=== PATIENT | female | born 1980 | race African-American/Black ===

== ENCOUNTER 2021-02-03 09:57 | Emergency (ER) | payer BC ==
--- OUTSIDE RECORDS SUMMARY | 2021-02-03 10:01 | XMS REPORT | Continuity of Care Document ---
:1980 Author Organization [facility] t Address [address] [place] [address] Care Team Providers Name Role Phone MAXWELL BRISENO Attending Clinician Unavailable LEESA EDWARDS Attending Clinician Unavailable Problems Condition Condition Condition Status Onset Resolution Last Treating Co mments Source Name Details Category Date Date Treatment Clinician Date Tear of Tear of Problem Active [facility] left [facility] cuff, cuff, l unspecifie unspecifie Ou tpati d tear d tear ent extent extent Clinics Allergies, Adverse Reactions, Alerts Allergy Allergy Status Severity Reaction(s) Onset Inactive Treating Comm ents Source Name Type Date Date Clinician Aspirin Adverse Active Info Not [facility] Reaction Available [facility] Clinics Medications Ordered Filled Start Stop Current Ordering Indication Dosage Frequency Signature Comments Components Source Medication Medication Date Date Medication? Clinician (SIG) Name Name ibuprofen ibuprofen Yes Jay [address] [facility]ics Aleve Aleve Yes Jay [address] [facility] with food [facility] - or milk as Memoria needed [facility] ent [facility] tylenol tylenol Yes Jay [facility] Procedures This patient has no known procedures. Encounters Start End Encounter Admission Attending Care Care Encounter Source Date/Time Date/Time Type Type Clinicians Facility Department ID 2017-12-12 2017-12-12 [facility] [id number] [facility] [address] 11:57:00 11:57:00 t [facility] 2017-12-07 2017-12-07 [facility] [id number] [address] 09:34:00 09:34:00 t [facility] 2017-12-05 2017-12-05 [facility] [id number] [facility] [address] 08:30:00 08:30:00 t [facility] Results Test Description Test Time Test Comments Results Result Comments Source URINE CULTURE 2017-05-11 13:30:00 Test Item Value Reference Range Interpretation Comme nts CULTURE (BEAKER) (test code = 1095) 40-49,000 col/mL skin ramon HEMOGLOBIN [id number] 16:13:00 Test Item Value Reference Range Interpretation Comments HEMOGLOBIN A1C (BEAKER) (test code = 4.4 % 4.3-6.1 368) URINALYSIS W/ [id number] 12:14:00 Test Item Value Reference Range Interpretation Comments COLOR (BEAKER) (test code = 470) Light Yellow CLARITY (BEAKER) (test code = Clear 469) SPECIFIC GRAVITY UA (BEAKER) 1.009 1.001-1.035 (test code = 468) PH UA (BEAKER) (test code = 467) 7.0 5.0-8.0 PROTEIN UA (BEAKER) (test code = Negative Negative 464) GLUCOSE UA (BEAKER) (test code = Negative Negative 365) KETONES UA (BEAKER) (test code = Negative Negative 371) BILIRUBIN UA (BEAKER) (test code Negative Negative = 462) BLOOD UA (BEAKER) (test code = Negative Negative 461) NITRITE UA (BEAKER) (test code = Negative Negative 465) LEUKOCYTE ESTERASE UA (BEAKER) Negative Negative (test code = 466) UROBILINOGEN UA (BEAKER) (test 0.2 mg/dL 0.2-1.0 code = 463) RBC UA (BEAKER) (test code = < /HPF 519) WBC UA (BEAKER) (test code = 1 /HPF 520) SQUAMOUS EPITHELIAL (BEAKER) < /HPF (test code = 516) SOURCE(BEAKER) (test code = 2795) PROTEIN, RANDOM [id number] 12:10:00 Test Item Value Reference Range Interpretation Comments PROTEIN, URINE (BEAKER) (test code = < mg/dL 0-14 1569) MICROALBUMIN, RANDOM [id number] 12:04:00 Test Item Value Reference Range Interpretation Comments MICROALBUMIN URINE (BEAKER) (test < mg/dL code = 1794) Reference Range: No NormalsHCG, QUANTITATIVE, [id number] 12:03:00 Test Item Value Reference Range Interpretation Comments GONADOTROPIN, CHORIONIC (HCG) QUANT < mIU/mL 0-10 (BEAKER) (test code = 649) Non- Females: <10 mIU/mL Females: Gestation Age Reference Range(mIU/mL) 0.2-1 Week 5-50 1-2 Weeks 50-500 2-3 Weeks 100-5,000 3-4Weeks 500-10,000 4-5 Weeks 1,000-50,000 5-6 Weeks 10,000-100,000 6-8 Weeks 15,000-200,000 2-3 Months 10,000-100,000CREATININE, RANDOM URINE 2017-05-10 11:38:00 Test Item Value Reference Range Interpretation Comments CREATININE URINE (BEAKER) (test 70.1 mg/dL code = 375) Reference Range: No NormalsHEPATIC FUNCTION [id number] 11:37:00 Test Item Value Reference Range Interpretation Comments TOTAL PROTEIN (BEAKER) (test code = 7.6 gm/dL 6.0-8.3 770) ALBUMIN (BEAKER) (test code = 1145) 4.0 g/dL 3.5-5.0 BILIRUBIN TOTAL (BEAKER) (test code 0.3 mg/dL 0.2-1.2 = 377) BILIRUBIN DIRECT (BEAKER) (test 0.1 mg/dL 0.1-0.5 code = 706) ALKALINE PHOSPHATASE (BEAKER) (test 63 U/L 40-150 code = 346) AST (SGOT) (BEAKER) (test code = 19 U/L 5-34 353) ALT (SGPT) (BEAKER) (test code = 14 U/L 6-55 347) BASIC METABOLIC [id number] 11:37:00 Test Item Value Reference Range Interpretation Comments SODIUM (BEAKER) 137 meq/L 136-145 (test code = 381) POTASSIUM (BEAKER) 4.2 meq/L 3.5-5.1 (test code = 379) CHLORIDE (BEAKER) 106 meq/L 98-107 (test code = 382) CO2 (BEAKER) (test 25 meq/L 22-29 code = 355) BLOOD UREA NITROGEN 13 mg/dL 7-21 (BEAKER) (test code = 354) CREATININE (BEAKER) 0.78 mg/dL 0.57-1.25 (test code = 358) GLUCOSE RANDOM 65 mg/dL 70-105 L (BEAKER) (test code = 652) CALCIUM (BEAKER) 9.5 mg/dL 8.4-10.2 (test code = 697) EGFR (BEAKER) (test 84 mL/min/1.73 ESTIMA DAVE GFR IS code = 1092) sq m NOT ACCURATE CREATININE CLEARANCE IN PREDICTING GLOMERULAR FILTRATION RATE . ESTIMATED GFR I S NOT APPLICABLE FOR DIALYSIS PATIEN TS. CBC W/PLT COUNT & AUTO [id number] 10:43:00 Test Item Value Reference Range Interpretation Comments WHITE BLOOD CELL COUNT (BEAKER) 6.7 K/ L 3.5-10.5 (test code = 775) RED BLOOD CELL COUNT (BEAKER) 4.57 M/ L 3.93-5.22 (test code = 761) HEMOGLOBIN (BEAKER) (test code = 11.0 GM/DL 11.2-15.7 L 410) HEMATOCRIT (BEAKER) (test code = 36.9 % 34.1-44.9 411) MEAN CORPUSCULAR VOLUME (BEAKER) 80.7 fL 79.4-94.8 (test code = 753) MEAN CORPUSCULAR HEMOGLOBIN 24.1 pg 25.6-32.2 L (BEAKER) (test code = 751) MEAN CORPUSCULAR HEMOGLOBIN CONC 29.8 GM/DL 32.2-35.5 L (BEAKER) (test code = 752) RED CELL DISTRIBUTION WIDTH 25.6 % 11.7-14.4 H (BEAKER) (test code = 412) PLATELET COUNT (BEAKER) (test 279 K/CU MM 150-450 code = 756) MEAN PLATELET VOLUME (BEAKER) 9.7 fL 9.4-12.3 (test code = 754) NUCLEATED RED BLOOD CELLS 0 /100 WBC 0-0 (BEAKER) (test code = 413) NEUTROPHILS RELATIVE PERCENT 71 % (BEAKER) (test code = 429) LYMPHOCYTES RELATIVE PERCENT 19 % (BEAKER) (test code = 430) MONOCYTES RELATIVE PERCENT 9 % (BEAKER) (test code = 431) EOSINOPHILS RELATIVE PERCENT 1 % (BEAKER) (test code = 432) BASOPHILS RELATIVE PERCENT 1 % (BEAKER) (test code = 437) NEUTROPHILS ABSOLUTE COUNT 4.78 K/ L 1.56-6.13 (BEAKER) (test code = 670) LYMPHOCYTES ABSOLUTE COUNT 1.27 K/ L 1.18-3.74 (BEAKER) (test code = 414) MONOCYTES ABSOLUTE COUNT (BEAKER) 0.57 K/ L 0.24-0.36 H (test code = 415) EOSINOPHILS ABSOLUTE COUNT 0.04 K/ L 0.04-0.36 (BEAKER) (test code = 416) BASOPHILS ABSOLUTE COUNT (BEAKER) 0.04 K/ L 0.01-0.08 (test code = 417) IMMATURE GRANULOCYTES-RELATIVE 1 % 0-1 PERCENT (BEAKER) (test code = 2801) RAPID STREP A [id number] 23:12:00 Test Item Value Reference Range Interpretation Comments STREP A ANTIGEN (BEAKER) (test code Negative Negative = 556)
[2021-02-03 13:28] LABS: Absolute Lymphocytes (CBC) 1.4 K/uL (0.7-4.9); Basophils % 0.4 % (0-1.3); Hematocrit 20.9 % (36.0-45.0); Lymphocytes % 26.5 % (15.3-44.8); MPV 7.9 fL (7.6-11.3); RBC Red Blood Cell Count 3.71 M/uL (3.86-4.86)
[2021-02-03 13:46] LABS: Potassium 3.7 mmol/L (3.5-5.1)
[2021-02-03 14:00] LABS: Protime INR 1.06
[2021-02-03 14:29] LABS: Urine Blood 3+ (Negative); Urine Glucose Negative (Negative); Urine Protein Negative (Negative); Urine Specific Gravity 1.015 (1.005-1.030)
[2021-02-03] MEDS ORDERED: NA CHLORIDE 0.9% 250 ML ONE ×2 (14:35→19:49)
[2021-02-03] MEDS ORDERED: MEDROXYPROGEST ACET 150 MG/ML IM ONE (15:00)
[2021-02-03 16:59] LABS: Urine Specific Gravity/Preg 1.015 (1.005-1.030)
[2021-02-03 17:38] LABS: Anisocytosis 2+; Blood Morphology Comment NOTED (NOT SEEN); Hypochromasia 3+; Platelet Estimate INCR; Poikilocytosis 2+; Polychromasia 1+
[2021-02-03 17:39] LABS: Ovalocytes 1+; Teardrop Cell 1+
--- NOTE | 2021-02-03 21:39 | EDPHYS ---
Physician Documentation [facility] Name: Augusta Rider Age: 40 yrs Sex: Female : 1980 Arrival Date: 02/03/2021 Time: 10:02 Bed 6 Private MD: ED Physician Ravinder Burns HPI: 02/03 13:10 This 40 yrs old Black Female presents to ER via Ambulatory with complaints of Sent Per cp DrWayne 13:10 The patient presents with vaginal bleeding that is reports using 6 pads or tampons per cp day. Onset: The symptoms/episode began/occurred 5 day(s) ago. 13:10 Associated signs and symptoms: Pertinent positives: fatigue, Pertinent negatives: cp constipation, diarrhea, dysuria, abdominal pain. The patient's method of control includes nothing. Patient presents to the emergency department with complaints of fatigue and concern for anemia. Patient reports she was seen by her family physician Dr. Antonio yesterday after having an episode of heavy nasal bleeding, she had some blood work done that returned today showing anemia and referred to the emergency department for evaluation. Patient reports history of heavy menstrual bleeding and is currently having menstrual bleeding and reports at times she has to change a pad every 4 hours. She states the bleeding seems to be resolving at this point as it is getting close to the end of her regular menstrual cycle. Patient states she has seen Dr Jansen in the past who recommended uterine ablation for the heavy menstrual cycles but she has not followed up. 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 - Social history:: Smoking status: Patient denies any tobacco usage or history of. ROS: 13:15 Constitutional: Positive for fatigue, Negative for body aches, chills, fever, poor PO cp intake. 13:15 Eyes: Negative for injury, pain, redness, and discharge. cp 13:15 Cardiovascular: Negative for chest pain, edema, palpitations. 13:15 Respiratory: Negative for cough, shortness of breath, wheezing. 13:15 Abdomen/GI: Negative for abdominal pain, nausea, vomiting, and diarrhea. 13:15 Back: Negative for pain at rest, pain with movement. 13:15 : Positive for vaginal bleeding. 13:15 Neuro: Negative for altered mental status, dizziness, headache, weakness. 13:15 All other systems are negative. Exam: 13:20 Constitutional: The patient appears in no acute distress, alert, awake, comfortable, cp non-diaphoretic, non-toxic, well developed, well nourished. 13:20 Head/Face: Normocephalic, atraumatic. cp 13:20 Eyes: Periorbital structures: appear normal, Conjunctiva: normal, no exudate, no injection, Sclera: no appreciated abnormality, Lids and lashes: appear normal, bilaterally. 13:20 ENT: External ear(s): are unremarkable, Nose: is normal, Mouth: Lips: moist, Oral mucosa: moist, Posterior pharynx: Airway: no evidence of obstruction, patent. 13:20 Chest/axilla: Inspection: normal. 13:20 Cardiovascular: Rate: normal, Rhythm: regular, Edema: is not appreciated, JVD: is not appreciated. 13:20 Respiratory: the patient does not display signs of respiratory distress, Respirations: normal, no use of accessory muscles, no retractions, labored breathing, is not present, Breath sounds: are clear throughout, no decreased breath sounds, no stridor, no wheezing. 13:20 Abdomen/GI: Inspection: abdomen appears normal, Bowel sounds: active, all quadrants, Palpation: abdomen is soft and non-tender, in all quadrants, involuntary guarding, is not appreciated. 13:20 Back: pain, is absent, ROM is normal. 13:20 Neuro: Orientation: to person, place \T\ time. Mentation: is normal, Motor: moves all fours, strength is normal, Sensation: is normal. Vital Signs: 10:17 BP 120 / 82; Pulse 97; Resp 16; Temp 97.9(TE); Pulse Ox 100% on R/A; Weight 78.02 kg; ss Height 5 ft. 3 in. (160.02 cm); Pain 0/10; 14:28 BP 119 / 72; Pulse 79; Resp 17; Pulse Ox 100% ; ap3 15:36 BP 104 / 60; Pulse 71; Resp 17; Pulse Ox 100% on R/A; ap3 16:21 BP 112 / 66; Pulse 78; Resp 16; Pulse Ox 100% on R/A; ap3 17:17 BP 111 / 76; Pulse 72; Resp 16; Pulse Ox 98% on R/A; ap3 18:13 BP 127 / 93; Pulse 75; Resp 16 S; Pulse Ox 100% on R/A; jd3 19:31 BP 133 / 78; Pulse 90; Resp 18; Pulse Ox 100% ; tw5 20:03 BP 120 / 71; Pulse 90; Resp 16; Temp 98.8; Pulse Ox 100% ; Pain 0/10; tw5 21:22 tw5 10:17 Body Mass Index 30.47 (78.02 kg, 160.02 cm) ss 21:22 see blood tranfusion spread sheet for vitals tw5 MDM: 02/02 14:00 Differential diagnosis: dysmenorrhea, ectopic , pelvic inflammatory disease, cp hemorrhage, ruptured ectopic , urinary tract infection, vaginosis, uterine fibroid. 02/03 13:02 Patient medically screened. [facility] 14:15 Data reviewed: vital signs, nurses notes, lab test result(s). 14:15 Refusal of service: The patient/guardian displays adequate decision making capability cp and despite a detailed discussion of alternatives, benefits, risks, and consequences refuses: pelvic exam to assess vaginal bleeding and pelvic US. Patient reports having US performed earlier this year that was negative for uterine fibroids. 18:00 Transition of care: After a detail discussion of the patient's case, care is cp transferred to Driss STARKS. 21:38 Data interpreted: Pulse oximetry: on room air is 100 %. Interpretation: normal. jr8 Counseling: I had a detailed discussion with the patient and/or guardian regarding: the historical points, exam findings, and any diagnostic results supporting the discharge/admit diagnosis, lab results, the need for outpatient follow up, an OB/Gyne specialist, to return to the emergency department if symptoms worsen or persist or if there are any questions or concerns that arise at home. Response to treatment: the patient's symptoms have markedly improved after treatment. 02/03 13:06 Order name: CBC with Diff; Complete Time: 17:40 ss 02/03 13:58 Interpretation: Normal except: RBC 3.71; HGB 6.1; HCT 20.9; MCV 56.3; MCH 16.5; MCHC cp 29.2; PLT 467; RDW 23.3. 02/03 13:06 Order name: BMP; Complete Time: 13:58 ss 02/03 13:06 Order name: Type And Screen ss 02/03 13:07 Order name: PT-INR; Complete Time: 15:44 cp 02/03 13:07 Order name: Ptt, Activated; Complete Time: 15:44 cp 02/03 14:29 Order name: Urine Dipstick-Ancillary; Complete Time: 15:44 EDMS 02/03 15:44 Interpretation: Normal except: UBLD 3+. cp 02/03 13:07 Order name: IV; Complete Time: 13:20 cp 02/03 14:32 Order name: Packed RBC Leukored EDMD 02/03 15:58 Order name: Urine --Ancillary (enter results) bd 02/03 15:59 Order name: Urine --Ancillary; Complete Time: 17:40 EDMS 02/03 16:53 Order name: Bb Add On cp 02/03 17:00 Order name: Packed RBCs (Additional Unit) EDMD 02/03 17:38 Order name: Manual Differential; Complete Time: 17:40 EDMS 02/03 13:20 Order name: Urine Dipstick-Ancillary (obtain specimen); Complete Time: 14:24 cp 02/03 13:20 Order name: Urine Test (obtain specimen); Complete Time: 14:24 cp 02/03 14:11 Order name: Transfuse; Complete Time: 18:08 cp Administered Medications: 15:49 Drug: DepoProvera - medroxyPROGESTERone 150 mg Route: IM; Site: left gluteus; ap3 16:20 Follow up: Response: No adverse reaction ap3 Disposition: 02/04 09:20 Co-signature as Attending Physician, Ravinder Burns MD I agree with the assessment and mohamud plan of care. Disposition Summary: 02/03/21 21:39 Discharge Ordered Location: Home jr8 Problem: new jr8 Symptoms: have improved jr8 Condition: Stable jr8 Diagnosis - Abnormal uterine and vaginal bleeding, unspecified jr8 - Anemia, unspecified jr8 Followup: jr8 - With: Christina Jansen MD - When: 2 - 3 days - Reason: Recheck today's complaints, Continuance of care, Re-evaluation by your physician Discharge Instructions: - Discharge Summary Sheet jr8 - Abnormal Uterine Bleeding jr8 - Anemia jr8 - Blood Transfusion, Adult jr8 Forms: - Medication Reconciliation Form jr8 - Thank You Letter jr8 - Antibiotic Education jr8 - Prescription Opioid Use jr8 Prescriptions: - Ferrous Sulfate 325 mg (65 mg Iron) Oral Tablet - take 1 tablet by ORAL route every 8 hours; 90 tablet; Refills: 0, Product jr8 Selection Permitted - Medrol ([place]) 4 mg Oral Tablets, Dose Pack - take 1 tablet by ORAL route as directed - follow package instructions; 1 jr8 packet; Refills: 0, Product Selection Permitted Signatures: Dispatcher [employer] EDRavinder Metz MD MD cha Smirch, Shelby, RN RN Driss Tolbert PA PA jr8 Ravinder Alexandra PA PA cp Prokisch, Amanda RN RN ap3
--- NOTE | 2021-02-03 21:39 | ER ---
Nurse's Notes [facility] Name: Augusta Rider Age: 40 yrs Sex: Female : 1980 Arrival Date: 02/03/2021 Time: 10:02 Bed 6 Private MD: Diagnosis: Abnormal uterine and vaginal bleeding, unspecified;Anemia, unspecified Presentation: 02/03 10:17 Chief complaint: Patient states: "Dr. Almanzar called me and told me to come straight to the ER to get a blood transfusion. He said my blood count was 6 something." Pt reports that she was seen by doctor yesterday after having a nose bleed yesterday. Pt states she has been feeling okay, other than just a little tired. HX of anemia. Coronavirus screen: Client denies travel out of the [place] in the last 14 days. Ebola Screen: Patient denies exposure to infectious person. Patient denies travel to an Ebola-affected area in the 21 days before illness onset. Initial Sepsis Screen: Does the patient meet any 2 criteria? No. Patient's initial sepsis screen is negative. Does the patient have a suspected source of infection? No. Patient's initial sepsis screen is negative. Risk Assessment: Do you want to hurt yourself or someone else? Patient reports no desire to harm self or others. Onset of symptoms was February 03, 2021. 10:17 Method Of Arrival: Ambulatory ss 10:17 Acuity: POOJA 3 ss Triage Assessment: 13:21 General: Appears in no apparent distress. comfortable, well groomed, Behavior is calm, jh5 cooperative, appropriate for age. Pain: Denies pain. 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 - Social history:: Smoking status: Patient denies any tobacco usage or history of. Screenin:21 Abuse screen: Denies threats or abuse. Denies injuries from another. Nutritional jh5 screening: No deficits noted. Tuberculosis screening: No symptoms or risk factors identified. Fall Risk None identified. Assessment: 13:53 General: Appears in no apparent distress. comfortable, Behavior is calm, cooperative. ss Pain: Denies pain. Neuro: Level of Consciousness is awake, alert, obeys commands, Oriented to person, place, time, situation. Cardiovascular: Capillary refill < 3 seconds is brisk in bilateral fingers. Respiratory: Airway is patent Respiratory effort is even, unlabored, Respiratory pattern is regular, symmetrical. GI: No signs and/or symptoms were reported involving the gastrointestinal system. Derm: Skin is intact, is healthy with good turgor, Skin is dry, Skin is pink, warm \\T\\ dry. normal. 13:53 Reassessment: Dr. Burns notified of critical lab value HGB 6.1. ss 15:36 Reassessment: Patient and/or family updated on plan of care and expected duration. Pain ap3 level reassessed. Patient is alert, oriented x 3, equal unlabored respirations, skin warm/dry/pink. 15:49 Reassessment: Patient ambulated to restroom unassisted. No injuries reported. ap3 18:05 Reassessment: Patient and/or family updated on plan of care and expected duration. Pain jd3 level reassessed. Patient is alert, oriented x 3, equal unlabored respirations, skin warm/dry/pink. blood transfusion started. 19:31 General: Appears in no apparent distress. comfortable, Behavior is calm, cooperative, tw5 appropriate for age. General: Reports "I bleed a lot, like a lot of a lot when I am on my period" Patient reports that this is her first time getting a blood transfusion, but was told before in the past that she needed one. It was discussed that she needs an ablation. Neuro: Level of Consciousness is awake, alert, obeys commands, Oriented to person, place, time, situation. 20:03 Reassessment: Patient appears in no apparent distress at this time. No changes from tw5 previously documented assessment. second bag of blood began infusing. see attached flow sheet on patients chart. 21:22 Reassessment: Patient appears in no apparent distress at this time. No changes from tw5 previously documented assessment. Patient and/or family updated on plan of care and expected duration. Pain level reassessed. General: Appears in no apparent distress. comfortable, Behavior is calm, cooperative, appropriate for age. Vital Signs: 10:17 BP 120 / 82; Pulse 97; Resp 16; Temp 97.9(TE); Pulse Ox 100% on R/A; Weight 78.02 kg; ss Height 5 ft. 3 in. (160.02 cm); Pain 0/10; 14:28 BP 119 / 72; Pulse 79; Resp 17; Pulse Ox 100% ; ap3 15:36 BP 104 / 60; Pulse 71; Resp 17; Pulse Ox 100% on R/A; ap3 16:21 BP 112 / 66; Pulse 78; Resp 16; Pulse Ox 100% on R/A; ap3 17:17 BP 111 / 76; Pulse 72; Resp 16; Pulse Ox 98% on R/A; ap3 18:13 BP 127 / 93; Pulse 75; Resp 16 S; Pulse Ox 100% on R/A; jd3 19:31 BP 133 / 78; Pulse 90; Resp 18; Pulse Ox 100% ; tw5 20:03 BP 120 / 71; Pulse 90; Resp 16; Temp 98.8; Pulse Ox 100% ; Pain 0/10; tw5 21:22 tw5 10:17 Body Mass Index 30.47 (78.02 kg, 160.02 cm) ss 21:22 see blood tranfusion spread sheet for vitals tw5 ED Course: 10:02 Patient arrived in ED. mr 10:22 Triage completed. ss 10:22 Arm band placed on right wrist. ss 13:01 Ravinder Alexandra PA is PHCP. cp 13:01 Ravinder Burns MD is Attending Physician. cp 13:10 Judy Santa, BEA is Primary Nurse. [facility] 13:20 Ptt, Activated Sent. 5 13:20 PT-INR Sent. 5 13:20 Type And Screen Sent. 5 13:20 BMP Sent. 5 13:20 CBC with Diff Sent. 5 13:21 No provider procedures requiring assistance completed. Inserted saline lock: 18 gauge [facility] in right antecubital area, using aseptic technique. 13:22 Patient has correct armband on for positive identification. Call light in reach. Side 5 rails up X2. 17:41 PHCP role handed off by Ravinder Alexandra PA jr8 17:41 Driss Workman PA is PHCP. 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 Pulse ox on. NIBP on. Door closed. Moved to private room. Warm tw5 blanket given. Verbal reassurance given. 20:13 Bb Add On Sent. tw5 20:13 Urine --Ancillary (enter results) Sent. tw5 21:38 Christina Jansen MD is Referral Physician. jr8 21:49 IV discontinued, intact, bleeding controlled, No redness/swelling at site. Pressure tw5 dressing applied. Administered Medications: 15:49 Drug: DepoProvera - medroxyPROGESTERone 150 mg Route: IM; Site: left gluteus; ap3 16:20 Follow up: Response: No adverse reaction ap3 Outcome: 21:39 Discharge ordered by . jr8 21:49 Discharged to home ambulatory. tw5 21:49 Condition: stable 21:49 Discharge instructions given to patient, Instructed on discharge instructions, follow up and referral plans. Prescriptions given X 2. 21:49 Patient left the ED. tw5 Signatures: Katelynn Parks mr GramajoMadeleine, RN RN Driss Tolbert PA PA jr8 Ravinder Alexandra PA PA cp Davies, Jonathon, RN RN jMaria Dolores Lima RN RN ap3 Naya Garcia tw5 Judy Santa RN RN jh5 Corrections: (The following items were deleted from the chart) 18:13 18:12 Reassessment: Patient and/or family updated on plan of care and expected jd3 duration. Pain level reassessed. Patient is alert, oriented x 3, equal unlabored respirations, skin warm/dry/pink. blood transfusion started. jd3
[2021-02-03 22:30] VITALS: O2SAT 100
[2021-02-03 22:33] VITALS: BP 120/71; TEMP 98.8
== END 2021-02-03 21:49 | disposition home or self-care (01) ==
LOC: ER 09:57
DX: N93.9 Abnormal uterine and vaginal bleeding, unspecified (principal); D64.9 Anemia, unspecified; Z88.2 Allergy status to sulfonamides
CPT/HCPCS: 85025; 80048; 36415; 86900; 86850; 81025; 85610; 86901; 85730; 81003; 96372; 99284; J1050; P9016 ×2; J7050 ×2

== ENCOUNTER 2021-09-12 09:11 | Emergency (ER) | payer BC ==
[2021-09-12] MEDS ORDERED: KETOROLAC 30 MG/ML INJ ONE (09:52)
[2021-09-12] MEDS ORDERED: NA CHLORIDE 0.9% 1,000 ML ONE (09:52)
[2021-09-12] MEDS ORDERED: DIPHENHYDRAMINE 50 MG/ML VIAL ONE (09:52)
[2021-09-12] MEDS ORDERED: METOCLOPRAMIDE 10 MG/2mL INJ ONE (09:52)
[2021-09-12 09:54] LABS: Urine Blood Trace-intact (Negative); Urine Glucose Negative (Negative); Urine Protein Negative (Negative)
[2021-09-12 10:19] LABS: Absolute Lymphocytes (CBC) 1.4 K/uL (0.7-4.9); Hematocrit 19.9 % (36.0-45.0); Lymphocytes % 28.5 % (15.3-44.8); MCV 61.2 fL (80-100); RBC Red Blood Cell Count 3.25 M/uL (3.86-4.86)
--- NOTE | 2021-09-12 10:44 | RAD REPORT ---
EXAM DESCRIPTION: CT - Head Brain Wo Cont - 09/12/2021 10:24 am CLINICAL HISTORY: Headache COMPARISON: None. TECHNIQUE: Computed axial tomography of the head was obtained. IV contrast was not requested. All CT scans are performed using dose optimization technique as appropriate and may include automated exposure control or mA/KV adjustment according to patient size. FINDINGS: An intracranial bleed is not seen . The ventricles are normal in caliber. No significant hypodense areas within the brain visualized No extra-axial fluid collection is noted. Fluid within the sinuses/ mastoids is not seen. IMPRESSION: No acute intracranial abnormality is seen. If patient's symptoms persist MRI of the bra in would be recommended.
[2021-09-12 10:48] LABS: Albumin 3.4 g/dL (3.4-5.0); Bilirubin Total 0.1 mg/dL (0.2-1.0); Potassium 3.8 mmol/L (3.5-5.1); Protein, Total 7.7 g/dL (6.4-8.2)
[2021-09-12 11:05] LABS: Blood Morphology Comment NOTED (NOT SEEN); Hypochromasia 1+; Platelet Estimate ADEQ; White Blood Cell Scan OK (OK)
[2021-09-12] MEDS ORDERED: NA CHLORIDE 0.9% 0 ML ONE (15:45)
--- NOTE | 2021-09-12 18:27 | ER ---
Nurse's Notes [facility] Name: Augusta Rider Age: 40 yrs Sex: Female : 1980 Arrival Date: 09/12/2021 Time: 09:13 Bed 13 Private MD: Diagnosis: Anemia, unspecified;Headache Presentation: 09/12 09:23 Chief complaint: Patient states: intermittent headache X 4 days, has hx of migraines iw but this feels different, gets dizzy, felt like she was going to pass out yesterday, migraine meds are not helping, states that she had a heavy period for past 5 weeks that stopped yesterday , right now her pain is 3/10 but gets up to 10/10, headaches last about an hour. Coronavirus screen: Client presents with at least one sign or symptom that may indicate coronavirus-19. Ebola Screen: Patient negative for fever greater than or equal to 101.5 degrees Fahrenheit, and additional compatible Ebola Virus Disease symptoms Patient denies exposure to infectious person. Patient denies travel to an Ebola-affected area in the 21 days before illness onset. No symptoms or risks identified at this time. Initial Sepsis Screen: Does the patient meet any 2 criteria? No. Patient's initial sepsis screen is negative. Does the patient have a suspected source of infection? No. Patient's initial sepsis screen is negative. Risk Assessment: Do you want to hurt yourself or someone else? Patient reports no desire to harm self or others. Onset of symptoms was September 08, 2021. 09:23 Method Of Arrival: Ambulatory iw 09:23 Acuity: POOJA 3 iw Historical: - Allergies: 09:26 Sulfa (Sulfonamide Antibiotics); iw - Home Meds: 09:26 Imitrex Oral daily [Active]; iw - PMHx: 09:26 Anemia; GERD; Migraine; iw - PSHx: 09:26 section; iw - Immunization history:: Client reports receiving the 2nd dose of the Covid vaccine. - Social history:: Smoking status: Patient/guardian denies using tobacco. Screenin:35 Abuse screen: Denies threats or abuse. Nutritional screening: No deficits noted. vg1 Tuberculosis screening: No symptoms or risk factors identified. Fall Risk No fall in past 12 months (0 pts). No secondary diagnosis (0 pts). IV access (20 points). Ambulatory Aid- None/Bed Rest/Nurse Assist (0 pts). Gait- Normal/Bed Rest/Wheelchair (0 pts) Mental Status- Oriented to own ability (0 pts). Total Musa Fall Scale indicates No Risk (0-24 pts). Assessment: 09:35 General: Appears in no apparent distress. uncomfortable, Behavior is calm, cooperative. vg1 Pain: Complains of pain in head Pain currently is 5 out of 10 on a pain scale. Pain began x 4 days. Neuro: Level of Consciousness is awake, alert, obeys commands, Oriented to person, place, time, situation, Test Development Engineer are equal bilaterally Moves all extremities. Gait is steady, Speech is normal, Facial symmetry appears normal. Cardiovascular: Patient's skin is warm and dry. Respiratory: Airway is patent Respiratory effort is even, unlabored. GI: Abdomen is round non-distended, Patient currently denies nausea, vomiting. : No signs and/or symptoms were reported regarding the genitourinary system. EENT: No signs and/or symptoms were reported regarding the EENT system. Derm: Skin is intact, is healthy with good turgor. Musculoskeletal: Circulation, motion, and sensation intact. 10:42 Reassessment: Patient appears in no apparent distress at this time. Patient and/or vg1 family updated on plan of care and expected duration. Pain level reassessed. Patient is alert, oriented x 3, equal unlabored respirations, skin warm/dry/pink. Patient states feeling better. 11:10 Reassessment: disclosure and consent form for blood transfusion of 2 units PRBC siged vg1 and dated by pt and provider. 11:45 Reassessment: Patient appears in no apparent distress at this time. No changes from vg1 previously documented assessment. Patient and/or family updated on plan of care and expected duration. Pain level reassessed. Patient is alert, oriented x 3, equal unlabored respirations, skin warm/dry/pink. 12:45 Reassessment: Patient appears in no apparent distress at this time. Patient and/or vg1 family updated on plan of care and expected duration. Pain level reassessed. Patient is alert, oriented x 3, equal unlabored respirations, skin warm/dry/pink. BEGAN FIRST UNIT OF BLOOD TRANSFUSION. Please refer to Transfusion Record for vitals. 13:45 Reassessment: provider at bedside. tw2 14:11 Reassessment: Patient appears in no apparent distress at this time. No changes from vg1 previously documented assessment. Patient and/or family updated on plan of care and expected duration. Pain level reassessed. Patient is alert, oriented x 3, equal unlabored respirations, skin warm/dry/pink. 15:06 Reassessment: Patient appears in no apparent distress at this time. No changes from vg1 previously documented assessment. Patient and/or family updated on plan of care and expected duration. Pain level reassessed. Patient is alert, oriented x 3, equal unlabored respirations, skin warm/dry/pink. 15:15 Reassessment: First unit of blood completed. Second unit order slip sent to lab. vg1 16:00 Reassessment: Patient appears in no apparent distress at this time. Patient and/or vg1 family updated on plan of care and expected duration. Pain level reassessed. Patient is alert, oriented x 3, equal unlabored respirations, skin warm/dry/pink. SECOND UNIT BEGAN Patient states feeling better. 17:00 Reassessment: Patient appears in no apparent distress at this time. Patient and/or vg1 family updated on plan of care and expected duration. Pain level reassessed. Patient is alert, oriented x 3, equal unlabored respirations, skin warm/dry/pink. Patient states feeling better. 18:05 Reassessment: Patient appears in no apparent distress at this time. Patient and/or vg1 family updated on plan of care and expected duration. Pain level reassessed. Patient is alert, oriented x 3, equal unlabored respirations, skin warm/dry/pink. Pt second unit of blood completed. Patient denies pain at this time. Patient states feeling better. 18:25 Reassessment: Pt refusing to wait two hours for H\T\H redraw. Provider notified. vg1 Vital Signs: 09:38 BP 109 / 71; Pulse 90; Resp 16; Temp 97.8(TE); Pulse Ox 100% on R/A; Pain 5/10; vg1 10:33 BP 121 / 51; Pulse 78; Resp 16; Pulse Ox 100% on R/A; vg1 11:30 BP 99 / 60; Pulse 65; Resp 16; Pulse Ox 100% ; vg1 18:00 BP 125 / 72; Pulse 71; Resp 16; Pulse Ox 100% on R/A; vg1 ED Course: 09:13 Patient arrived in ED. as 09:21 Carlos Dunham NP is PHCP. pm1 09:21 Juwan Kirby MD is Attending Physician. pm1 09:25 Dinah Yanes, RN is Primary Nurse. vg1 09:26 Triage completed. iw 09:27 Arm band placed on. iw 09:35 Patient has correct armband on for positive identification. Bed in low position. Call vg1 light in reach. Side rails up X 1. Pulse ox on. NIBP on. Warm blanket given. 09:35 No provider procedures requiring assistance completed. vg1 09:56 Initial lab(s) drawn, by me, sent to lab. Inserted saline lock: 20 gauge in right vg1 antecubital area, using aseptic technique. Blood collected. 10:26 CT Head Brain wo Cont In Process Unspecified. EDMS 18:26 Christina Jansen MD is Referral Physician. pm1 18:27 Aric Almanzar MD is Referral Physician. pm1 18:41 IV discontinued, intact, bleeding controlled, No redness/swelling at site. Pressure vg1 dressing applied. Administered Medications: 09:58 Drug: Ketorolac 30 mg Route: IVP; Site: right antecubital; vg1 11:30 Follow up: Response: No adverse reaction; Marked relief of symptoms vg1 09:59 Drug: Benadryl (diphenhydrAMINE) 12.5 mg Route: IVP; Site: right antecubital; vg1 11:30 Follow up: Response: No adverse reaction; Marked relief of symptoms vg1 10:00 Drug: Reglan (metoCLOPramide) 10 mg Route: IVP; Site: right antecubital; vg1 11:30 Follow up: Response: No adverse reaction; Marked relief of symptoms vg1 10:00 Drug: NS 0.9% 1000 ml Route: IV; Rate: 1000 ml; Site: right antecubital; vg1 18:40 Follow up: IV Status: Completed infusion; IV Intake: 1000ml vg1 12:36 Drug: Tylenol 650 mg Route: PO; vg1 17:30 Follow up: Response: No adverse reaction vg1 12:37 Drug: Solu-CORTEF (hyrdoCORTISONE) 50 mg Route: IVP; Site: right antecubital; vg1 17:31 Follow up: Response: No adverse reaction vg1 Medication: 09:35 VIS not applicable for this client. vg1 Intake: 18:40 IV: 1000ml; Total: 1000ml. vg1 Outcome: 18:27 Discharge ordered by MD. pm1 18:41 Discharged to home ambulatory, with family. vg1 18:41 Condition: improved 18:41 Discharge instructions given to patient, family, Instructed on discharge instructions, follow up and referral plans. Demonstrated understanding of instructions, follow-up care. 18:42 Patient left the ED. vg1 Signatures: Dispatcher [employer] EDThi Jackson Irene, RN RN iw Carlos Dunham, INGRID PHYSICAL BIOCHEMIST pm1 Marielos Dubois RN RN tw2 Dinah Yanes RN RN vg1 Corrections: (The following items were deleted from the chart) 13:03 12:45 Reassessment: Patient appears in no apparent distress at this time. Patient vg1 and/or family updated on plan of care and expected duration. Pain level reassessed. Patient is alert, oriented x 3, equal unlabored respirations, skin warm/dry/pink. BEGAN FIRST UNIT OF BLOOD TRANSFUSION vg1 15:39 15:15 Reassessment: First unit of blood completed. vg1 vg1
--- NOTE | 2021-09-12 18:28 | EDPHYS ---
Physician Documentation [facility] Name: Augusta Rider Age: 40 yrs Sex: Female : 1980 Arrival Date: 09/12/2021 Time: 09:13 Bed 13 Private MD: ED Physician Juwan Kirby HPI: 09/12 09:39 This 40 yrs old Black Female presents to ER via Ambulatory with complaints of Headache. pm1 09:39 The patient complains of pain to the forehead right side. The patient describes the pm1 headache as aching. Onset: The symptoms/episode began/occurred 4 day(s) ago. Associated signs and symptoms: Pertinent positives: dizziness, blurred vision, Pertinent negatives: fever, paresthesias, weakness. Severity of symptoms: in the emergency department the pain has resolved. Headache History: Other Patient with similar headache to the time she had anemia. Patient reports anemia is due to iron deficiency. The symptoms are alleviated by nothing. the symptoms are aggravated by nothing. The patient has not recently seen a physician. 10:42 Patient with abnormal uterine bleeding that has lasted for the past 5 weeks that has pm1 resolved yesterday. Patient with abnormal uterine bleeding for the past year. Blood transfusion in December for the same issue. Patient's headaches triggered by anemia. She is saving up money for hysterectomy with Dr. Vu. Historical: - Allergies: 09:26 Sulfa (Sulfonamide Antibiotics); iw - Home Meds: 09:26 Imitrex Oral daily [Active]; iw - PMHx: 09:26 Anemia; GERD; Migraine; iw - PSHx: 09:26 section; iw - Immunization history:: Client reports receiving the 2nd dose of the Covid vaccine. - Social history:: Smoking status: Patient/guardian denies using tobacco. ROS: 09:39 Constitutional: Negative for fever, chills, and weight loss, Cardiovascular: Negative pm1 for chest pain, palpitations, and edema, Respiratory: Negative for shortness of breath, cough, wheezing, and pleuritic chest pain, Abdomen/GI: Negative for abdominal pain, nausea, vomiting, diarrhea, and constipation, MS/Extremity: Negative for injury and deformity, Skin: Negative for injury, rash, and discoloration. 09:39 ENT: Negative for injury, pain, and discharge, Neck: Negative for injury, pain, and swelling. 09:39 Eyes: Positive for blurry vision with the pain. 09:39 Neuro: Positive for dizziness, headache, Negative for numbness, tingling, weakness. Exam: 09:39 Constitutional: This is a well developed, well nourished patient who is awake, alert, pm1 and in no acute distress. Head/Face: Normocephalic, atraumatic. 09:39 Skin: Warm, dry with normal turgor. Normal color with no rashes, no lesions, and no evidence of cellulitis. MS/ Extremity: Pulses equal, no cyanosis. Neurovascular intact. Full, normal range of motion. 09:39 Eyes: Exam is negative for acute changes, Periorbital structures: no acute changes, Pupils: no acute changes, Extraocular movements: no acute changes, Conjunctiva: pale, bilaterally. 09:39 ENT: Exam is negative for acute changes, Mouth: no acute changes, Lips: normal, moist, Oral mucosa: normal, pink and intact, moist. 09:39 Cardiovascular: Exam negative for acute changes, Rate: normal, Rhythm: regular, Pulses: no pulse deficits are appreciated. 09:39 Respiratory: Exam negative for acute changes, respiratory distress, shortness of breath. 09:39 Abdomen/GI: Exam negative for acute changes, Inspection: abdomen appears normal, Palpation: abdomen is soft and non-tender, in all quadrants. 09:39 Neuro: Exam negative for acute changes, Orientation: is normal, Mentation: is normal, Cerebellar function: Romberg testing is negative, normal finger to nose testing, Motor: moves all fours, strength is normal, strength is 5/5 in all extremities. 10:40 Abdomen/GI: Rectal exam: Stool: brown, guaiac negative, Geena Anderson RN. pm1 Vital Signs: 09:38 BP 109 / 71; Pulse 90; Resp 16; Temp 97.8(TE); Pulse Ox 100% on R/A; Pain 5/10; vg1 10:33 BP 121 / 51; Pulse 78; Resp 16; Pulse Ox 100% on R/A; vg1 11:30 BP 99 / 60; Pulse 65; Resp 16; Pulse Ox 100% ; vg1 18:00 BP 125 / 72; Pulse 71; Resp 16; Pulse Ox 100% on R/A; vg1 MDM: 09:22 Patient medically screened. pm1 11:07 Data reviewed: vital signs. Data interpreted: Pulse oximetry: on room air is 100 %. pm1 Interpretation: normal. 11:12 Counseling: I had a detailed discussion with the patient and/or guardian regarding: the pm1 historical points, exam findings, and any diagnostic results supporting the discharge/admit diagnosis, lab results, radiology results. 11:13 Refusal of service: The patient/guardian displays adequate decision making capability pm1 and despite a detailed discussion of alternatives, benefits, risks, and consequences refuses: Admission to the hospital for further work-up and treatment, patient prefers to have the transfusion of blood and to go home instead of being admitted. 14:29 ED course: Patient with current infusion of first bag of PRBC. Patient reports no pm1 headaches present while in the ER. 18:25 Refusal of service: The patient/guardian displays adequate decision making capability pm1 and despite a detailed discussion of alternatives, benefits, risks, and consequences refuses: Patient feels good after getting her blood transfusion and she wants to go home now. She does not want to wait two hours for repeat H\T\H. Patient's headaches resolved in the ER. 09/12 09:38 Order name: CBC with Diff; Complete Time: 11:13 pm09/12 09:38 Order name: CMP; Complete Time: 10:48 pm09/12 09:54 Order name: Urine Dipstick-Ancillary; Complete Time: 10:08 EDLA 09/12 09:59 Order name: Urine --Ancillary (enter results); Complete Time: 13:38 em09/12 10:25 Order name: CBC Smear Scan; Complete Time: 11:13 EDLA 09/12 10:30 Order name: Bb Add On 09/12 09:38 Order name: CT Head Brain wo Cont; Complete Time: 10:48 pm09/12 10:30 Order name: TS em09/12 10:35 Order name: Packed RBC Leukored EDLA 09/12 09:38 Order name: IV Saline Lock; Complete Time: 10:04 pm09/12 09:38 Order name: Urine Dipstick-Ancillary (obtain specimen); Complete Time: 10:04 pm09/12 09:38 Order name: Urine Test (obtain specimen); Complete Time: 10:04 pm1 09/12 10:40 Order name: Transfuse; Complete Time: 18:10 pm1 Administered Medications: 09:58 Drug: Ketorolac 30 mg Route: IVP; Site: right antecubital; vg1 11:30 Follow up: Response: No adverse reaction; Marked relief of symptoms vg1 09:59 Drug: Benadryl (diphenhydrAMINE) 12.5 mg Route: IVP; Site: right antecubital; vg1 11:30 Follow up: Response: No adverse reaction; Marked relief of symptoms vg1 10:00 Drug: Reglan (metoCLOPramide) 10 mg Route: IVP; Site: right antecubital; vg1 11:30 Follow up: Response: No adverse reaction; Marked relief of symptoms vg1 10:00 Drug: NS 0.9% 1000 ml Route: IV; Rate: 1000 ml; Site: right antecubital; vg1 18:40 Follow up: IV Status: Completed infusion; IV Intake: 1000ml vg1 12:36 Drug: Tylenol 650 mg Route: PO; vg1 17:30 Follow up: Response: No adverse reaction vg1 12:37 Drug: Solu-CORTEF (hyrdoCORTISONE) 50 mg Route: IVP; Site: right antecubital; vg1 17:31 Follow up: Response: No adverse reaction vg1 Disposition: 19:03 Co-signature as Attending Physician, Juwan Kirby MD. rn Disposition Summary: 09/12/21 18:27 Discharge Ordered Location: Home pm1 Problem: new pm1 Symptoms: have improved pm1 Condition: Stable pm1 Diagnosis - Anemia, unspecified pm1 - Headache pm1 Followup: pm1 - With: Emergency Department - When: As needed - Reason: Worsening of condition Followup: pm1 - With: Christina Jansen MD - When: 2 - 3 days - Reason: Recheck today's complaints, Continuance of care, Re-evaluation by your physician Followup: pm1 - With: Aric Almanzar MD - When: 2 - 3 days - Reason: Recheck today's complaints, Continuance of care, Re-evaluation by your physician Discharge Instructions: - Discharge Summary Sheet pm1 - Anemia pm1 - General Headache Without Cause pm1 Forms: - Medication Reconciliation Form pm1 - Thank You Letter pm1 - Antibiotic Education pm1 - Prescription Opioid Use pm1 - Work release form vg1 Signatures: Dispatcher [employer] Yuliana Snow, RN Juwan Wilcox MD MD rn Attema, Lee, MECHANICAL PENCILS ASSEMBLER-C MECHANICAL PENCILS ASSEMBLER-Cla1 Carlos Dunham, TRANSIT PLANNER TRANSIT PLANNER pm1 Dinah Yanes RN RN vg1 Corrections: (The following items were deleted from the chart) 11:28 10:40 Abdomen/GI: Rectal exam: Stool: brown, guaiac negative, pm1 pm1
[2021-09-12 19:07] VITALS: TEMP 97.8; O2SAT 100
[2021-09-12 19:12] VITALS: BP 125/72
== END 2021-09-12 18:42 | disposition home or self-care (01) ==
LOC: ER 09:11
PROC: 30233N1 Transfusion of Nonautologous Red Blood Cells into Peripheral Vein, Percutaneous Approach (ICD-10-PCS; principal; 2021-09-12)
DX: D64.9 Anemia, unspecified (principal); Z88.2 Allergy status to sulfonamides
CPT/HCPCS: 85025; 36415; 86900; 86850; 81025; 86901; 81003; 80053; 70450; 36430; J2765; J1200; P9016 ×2; J7030; 96361; 96374; 96375; 99284; J7050

== ENCOUNTER 2022-06-29 10:00 | Emergency (ER) | payer SELFPAY ==
--- OUTSIDE RECORDS SUMMARY | 2022-06-29 10:10 | XMS REPORT | Continuity of Care Document ---
:1980 Author Organization [facility] t Address [address] [place] [address] [place] [id number] Care Team Providers Name Role Phone PCP, PATIENT DOES NOT HAVE A Primary Care Physician Unavaila kaylynn Candelaria CHANGE MANAGEMENT DIRECTOR, Abad Diaz Attending Clinician ABAD CANDELARIA Attending Clinician Unavailable TRAVIS Attending Clinician Unavailable CHRISTIE BRISENO Attending Clinician Unavailable MCKAYLA EDWARDS Attending Clinician Unavailable ABAD CANDELARIA Admitting Clinician Unavailable TRAVIS Admitting Clinician Unavailable Problems Condition Condition Condition Status Onset Resolution Last Treating Co mments Source Name Details Category Date Date Treatment Clinician Date Tear of Tear of Problem Active Common left left Spirit rotator rotator - [facility] cuff, cuff, St unspecifie unspecifie Conchis kes d tear d tear Medical extent extent Center No known No known Disease Unive rs active active ity of problems problems [facility] Allergies, Adverse Reactions, Alerts Allergy Allergy Status Severity Reaction(s) Onset Inactive Treating Comm ents Source Name Type Date Date Clinician Aspirin Propensi Active Nausea Univers ty to and/or 1-28 ity of adverse Vomiting 00:00: [place] reaction 00 Medical s Branch Sulfa Propensi Active Hives Univers (Sulfona ty to 1-28 ity of mide adverse 00:00: [place] Antibiot reaction 00 Medica l ics) s Branch SULFA Drug Active Hives Univers (SULFONA Class 1-28 ity of MIDE 00:00: [place] ANTIBIOT 00 Medical ICS) Branch ASPIRIN DRUG Active N/V Univers INGREDI 04-03 ity of 00:00: [place] [address] Medical Branch Aspirin Propensi Active Nausea And [facility] to Vomiting 3-06 [facility] adverse 00:00: Medical reaction 00 Center s Sulfa Propensi Active Rash [facility] (Sulfona ty to 6-05 [facility] mide adverse 00:00: Medical Antibiot reaction 00 Center ics) s Aspirin Adverse Active Info Not Common Reaction Available Spir t - [facility] NO KNOWN Drug Active Univers ALLERGIE Class ity of S [facility] Family History Family Member Diagnosis Comments Start Date Stop Date Source Maternal aunt Cancer [facility] Maternal aunt Hypertension [facility] Maternal aunt Stroke [facility] Maternal grandfather Diabetes [facility] Maternal grandmother Heart attack I [facility] Maternal grandmother Hypertension [facility] Natural mother Hypertension [facility] Paternal aunt Diabetes [facility] Paternal aunt Hypertension [facility] Paternal aunt Kidney failure [facility] Paternal grandmother Alzheimer's disease [facility] Paternal uncle Stroke [facility] Social History Social Habit Start Date Stop Date Quantity Comments Source History of Current smoker [facility] tobacco use Medical Cente r Exposure to 2022-03-24 2022-04-03 Not sure University of SARS-CoV-2 00:00:00 20:26:00 [facility] (event) Branch Tobacco Comment 2017-05-10 2017-05-10 one pack/month [facility] 00:[facility]00 Medical Center Alcohol Comment 2017-05-10 2017-05-[address] [facility] 00:00:00 00:00:[address] Tobacco use and 2017-05-10 2017-05-[address] [facility] exposure 00:00:00 00:00:00 tobacco user Medical Cent er Alcohol intake 2017-05-10 2017-05-10 Current drinker of [facility] 00:00:00 00:00:00 alcohol (finding) Medical Center Sex Assigned At [address] [facility] 00:00:00 00:00:00 Medical Center Smoking Status Start Date Stop Date Source Tobacco smoking University [facility] xa consumption unknown Medical Bran ch Ex-smoker 2017-05-10 00:00:00 2017-05-10 [facility] 00:00:00 Center Medications Ordered Filled Start Stop Current Ordering Indication Dosage Frequency Signature Comments Components Source Medication Medication Date Date Medication? Clinician (SIG) Name Name dexamethaso 2022- No 10mg 10 mg, Uni vers ne 04-04 Intramuscu ity of (DECADRON 05:15: 04:14 lar, ONCE, [place] PHOSPHATE) 00 :00 1 dose, On Med ical injection Sat Branch 10 mg 04/03/22 at 2315, Routine methylPREDN Yes [id number] Take by [facility] ISolone 4 -29 mouth ity of mg tablets 00:00: SEE-INSTRU [place] 00 CTIONS. Medical follow Branch package directions albuterol Yes [id number] 2{puff} Inhale 2 Univers 90 1-28 Puffs ity of mcg/actuati 00:00: every 4 Nadeem as on inhaler 00 (four) Medical hours as Branch needed for Wheezing or Shortness of Breath. benzonatate Yes [id number] 200mg Take 2 Univers 100 mg 1-28 capsules ity of capsule 00:00: by mouth [place] 00 every 8 Medical (eight) Branch hours as needed for Cough. clindamycin Yes Root [facility] (CLEOCIN) 3-02 canal. [facility] 150 MG 00:00: Medical capsule 00 [place] FERRETTS Yes . [facility] 325 mg (106 2-08 [facility] mg iron) 00:00: Medical Tab 00 [place] VITAMIN D2 Yes . [facility] 50,000 unit 2-07 [facility] capsule 00:00: Medical 00 [place] meloxicam Yes As needed [facility] (MOBIC) 7.5 1-30 for pain. [place] es MG tablet 00:00: Medical 00 [place] tylenol tylenol Yes Jay 1 tab Commo n [place] [facility] ibuprofen ibuprofen Yes Jay 1 tab C ommon [place] [facility] Aleve Aleve Yes Jay 1 tablet Common [place] with food Spirit or milk as - [facility] needed [facility] Vital Signs Vital Name Observation Time Observation Value Comments Source Systolic blood 2022-04-04 04:13:00 138 mm[Hg] Univer sity of pressure [facility] Diastolic blood 2022-04-04 04:13:00 81 mm[Hg] Unive rsity of pressure [facility] Heart rate 2022-04-04 02:29:00 88 /min [facility] Body temperature 2022-04-04 02:29:00 37.89 Yany [facility] Respiratory rate 2022-04-04 02:29:00 18 /min [facility] Body height 2022-04-04 02:29:00 160 cm [facility] Body weight 2022-04-04 02:29:00 81.647 kg [facility] BMI 2022-04-04 02:29:00 31.89 kg/m2 [facility] Oxygen saturation in 2022-04-04 02:29:00 99 /min [facility] blood by [facility] Pulse oximetry Branch Procedures Procedure Date / Time Performed Performing Clinician Sourdonald e XR CHEST 1 VW 2022-04-04 03:38:16 Abad Candelaria [facility] RAPID STREP SCREEN 2022-04-04 02:35:00 Martine Cagle [facility] FOR GROUP A [facility] RAPID INFLUENZA A/B 2022-04-04 02:35:00 Martine Cagle [facility] COVID-19 (ID NOW 2022-04-04 02:35:00 Martine Cagle [facility] RAPID TESTING) [facility] Branch NOTICE OF PRIVACY 2022-04-04 02:10:59 Doctor Unassigned, No Univ [facility] PRACTICES Name Medical Branch CONSENT/REFUSAL FOR 2022-04-04 02:10:12 [facility], [facility] AND Name Medical Branch TREATMENT Encounters Start End Encounter Admission Attending Care Care Encounter Source Date/Time Date/Time Type Type Clinicians Facility Department ID 2022-04-03 2022-04-03 Emergency TANG Candelaria [id number] [facility] 20:36:00 22:29:00 [id number] [id number] [facility] 084 Branch 2022-04-03 2022-04-03 Emergency X [facility] ERT [id number] Univers 20:36:00 22:29:00 ABAD ity [facility] 2021-09-19 2021-09-19 Outpatient TASHA_ISAAC BOO [facility] [id number] [place] 09:44:00 09:44:00 _ANN 0716 da [facility] Outre h Program 2017-12-12 2017-12-12 [facility] [id number] Common 11:57:00 11:57:00 [facility] 2017-12-07 2017-12-07 [facility] [id number] Common 09:34:00 09:34:00 t [facility] 2017-12-05 2017-12-05 [facility] [id number] Common 08:30:00 08:30:00 t [facility] Results Test Description Test Time Test Comments Results Result Comments Source URINE CULTURE 2017-05-11 13:30:00 Test Item Value Reference Range Interpretation Comme nts CULTURE (BEAKER) (test code = 1095) 40-49,000 col/mL skin ramon HEMOGLOBIN [id number] 16:13:00 Test Item Value Reference Range Interpretation Comments HEMOGLOBIN A1C (BEAKER) (test code = 4.4 % 4.3-6.1 368) URINALYSIS W/ [id number] 12:14:00 Test Item Value Reference Range Interpretation [...] SOURCE(BEAKER) (test code = 2795) PROTEIN, RANDOM [id number] 12:10:00 Test Item Value Reference Range Interpretation Comments PROTEIN, URINE (BEAKER) (test code = < mg/dL 0-14 1569) MICROALBUMIN, RANDOM [id number] 12:04:00 Test Item Value Reference Range Interpretation Comments MICROALBUMIN URINE (BEAKER) (test < mg/dL code = 1794) Reference Range: No NormalsHCG, QUANTITATIVE, [id number] 12:03:00 Test Item Value Reference Range Interpretation Comments GONADOTROPIN, CHORIONIC (HCG) QUANT < mIU/mL 0-10 (BEAKER) (test code = 649) Non- Females: <10 mIU/mL Females: Gestation Age Reference Range(mIU/mL) 0.2-1 Week 5-50 1-2 Weeks 50-500 2-3 Weeks 100-5,000 3-4 Weeks 500-10,000 4-5 Weeks 1,000-50,000 5-6 Weeks 10,000-100,000 6-8 Weeks 15,000- 200,000 2-3 Months 10,000-100,000CREATININE, RANDOM [id number] 11:38:00 Test Item Value Reference Range Interpretation Comments CREATININE URINE (BEAKER) (test 70.1 mg/dL code = 375) Reference Range: No NormalsHEPATIC FUNCTION [id number] 11:37:00 Test Item Value Reference Range Interpretation [...] = 14 U/L 6-55 347) BASIC METABOLIC [id number] 11:37:00 Test Item Value Reference Range Interpretation [...] PATIEN TS. CBC W/PLT COUNT & AUTO [id number] 10:43:00 Test Item Value Reference Range Interpretation [...] (test code = 2801) RAPID STREP A [id number] 23:12:00 Test Item Value Reference Range Interpretation Comments STREP A ANTIGEN (BEAKER) (test code Negative Negative = 556)
[2022-06-29] MEDS ORDERED: NA CHLORIDE 0.9% 1,000 ML ONE (11:45)
[2022-06-29] MEDS ORDERED: ONDANSETRON 4 MG/2 ML VIAL ONE (11:45)
[2022-06-29] MEDS ORDERED: METOCLOPRAMIDE 10 MG/2mL INJ ONE (11:45)
[2022-06-29] MEDS ORDERED: METHYLPREDNISOLONE 125 MG INJ ONE (11:45)
[2022-06-29 12:10] LABS: Specific Gravity < 1.005 (1.005-1.030); Urine Bilirubin NEGATIVE (Negative); Urine Blood Negative (Negative); Urine Clarity Clear (Clear); Urine Color Colorless (Yellow); Urine Glucose NEGATIVE (Negative); Urine Protein NEGATIVE (Negative); Urine Urobilinogen Normal (Normal)
[2022-06-29 12:30] LABS: Hematocrit 21.7 % (36.0-45.0); Lymphocytes % 35.6 % (15.3-44.8); MPV 8.1 fL (7.6-11.3); RBC Red Blood Cell Count 3.68 M/uL (3.86-4.86)
[2022-06-29 12:34] LABS: SARS-CoV-2 Antigen Rapid Res Negative (Negative)
[2022-06-29 12:42] LABS: Albumin 3.6 g/dL (3.4-5.0); Bilirubin Total 0.4 mg/dL (0.2-1.0); Potassium 3.8 mEq/L (3.5-5.1); Protein, Total 8.3 g/dL (6.4-8.2)
[2022-06-29 12:49] LABS: Specific Gravity < 1.005 (1.005-1.030)
[2022-06-29] MEDS ORDERED: NA CHLORIDE 0.9% 500 ML ONE (14:21)
[2022-06-29 15:09] LABS: Anisocytosis 1+; Blood Morphology Comment NOTED (NOT SEEN); Hypochromasia 3+; Ovalocytes 2+; Platelet Estimate INCR; Poikilocytosis 3+; Teardrop Cell 1+; White Blood Cell Scan OK (OK)
--- NOTE | 2022-06-29 15:59 | EDPHYS ---
Physician Documentation [facility] Name: Augusta Rider Age: 41 yrs Sex: Female : 1980 Arrival Date: 06/29/2022 Time: 10:00 Bed 26 Private MD: Aric Almanzar ED Physician Dipesh Claudio HPI: 06/29 10:40 This 41 yrs old Black Female presents to ER via Ambulatory with complaints of Headache, jh7 Nausea, Dizziness. 10:40 The patient complains of pain to the forehead, right gnosticism and left gnosticism. The jh7 patient describes the headache as throbbing. Onset: The symptoms/episode began/occurred 1 week(s) ago, and became worse 2 day(s) ago. Associated signs and symptoms: Pertinent positives: dizziness, nausea, Pertinent negatives: altered mental status, neck stiffness, vision changes, vomiting. Headache History: The patient has had previous headaches and this one is similar to previous episodes. Patient reports nausea, dizziness, and headache over the past week worsening over the past 2 days. Also reports decrease in appetite and states that she has only been drinking Gatorade. LMP 1 week ago. Reports she has a history of severe anemia and that she normally gets headaches like this when she needs a blood transfusion. Reports that she takes ferrous sulfate daily but needs a refill. 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 - Social history:: Smoking status: Patient denies any tobacco usage or history of. ROS: 10:40 Constitutional: Negative for fever, chills, and weight loss, Eyes: Negative for injury, jh7 pain, redness, and discharge, ENT: Negative for injury, pain, and discharge, Neck: Negative for injury, pain, and swelling, Cardiovascular: Negative for chest pain, palpitations, and edema, Respiratory: Negative for shortness of breath, cough, wheezing, and pleuritic chest pain, Back: Negative for injury and pain, MS/Extremity: Negative for injury and deformity, Skin: Negative for injury, rash, and discoloration. 10:40 Abdomen/GI: Positive for nausea, Negative for abdominal pain, vomiting, diarrhea. 10:40 Neuro: Positive for dizziness, headache, Negative for loss of consciousness, numbness, syncope, tingling, visual changes. 10:40 All other systems are negative. Exam: 10:40 Head/Face: Normocephalic, atraumatic. Eyes: Pupils equal round and reactive to light, jh7 extra-ocular motions intact. Lids and lashes normal. Conjunctiva and sclera are non-icteric and not injected. Cornea within normal limits. Periorbital areas with no swelling, redness, or edema. ENT: Nares patent. No nasal discharge, no septal abnormalities noted. Tympanic membranes are normal and external auditory canals are clear. Oropharynx with no redness, swelling, or masses, exudates, or evidence of obstruction, uvula midline. Mucous membranes moist. Neck: Trachea midline, no thyromegaly or masses palpated, and no cervical lymphadenopathy. Supple, full range of motion without nuchal rigidity, or vertebral point tenderness. No Meningismus. Cardiovascular: Regular rate and rhythm with a normal S1 and S2. No gallops, murmurs, or rubs. Normal PMI, no JVD. No pulse deficits. Respiratory: Lungs have equal breath sounds bilaterally, clear to auscultation and percussion. No rales, rhonchi or wheezes noted. No increased work of breathing, no retractions or nasal flaring. Abdomen/GI: Soft, non-tender, with normal bowel sounds. No distension or tympany. No guarding or rebound. No evidence of tenderness throughout. 10:40 MS/ Extremity: Pulses equal, no cyanosis. Neurovascular intact. Full, normal range of motion. Neuro: Awake and alert, GCS 15, oriented to person, place, time, and situation. Cranial nerves II-XII grossly intact. Motor strength 5/5 in all extremities. Sensory grossly intact. Cerebellar exam normal. Normal gait. 10:40 Constitutional: The patient appears alert, awake, uncomfortable. 10:40 Skin: Appearance: Color: pale. Vital Signs: 10:35 BP 166 / 96; Pulse 89; Resp 17; Pulse Ox 98% ; Weight 77.11 kg; Height 5 ft. 3 in. ; ap3 Pain 5/10; 12:10 BP 129 / 74; Pulse 74; Resp 18; Pulse Ox 98% on R/A; Pain 5/10; nj1 14:17 BP 126 / 52; Pulse 75; Resp 16; Temp 98; Pulse Ox 100% ; nj1 15:25 BP 112 / 71; Pulse 77; Resp 16; Temp 98.1; Pulse Ox 100% ; nj1 16:25 BP 126 / 76; Pulse 78; Resp 17; Temp 98.1; Pulse Ox 100% ; nj1 16:41 BP 124 / 73; Pulse 83; Resp 18; Temp 98.4; Pulse Ox 100% ; nj1 10:35 Body Mass Index 30.11 (77.11 kg, 160.02 cm) ap3 10:35 Pain Scale: Adult ap3 12:10 Pain Scale: Adult nj1 Brayton Coma Score: 16:00 Eye Response: spontaneous(4). Motor Response: obeys commands(6). Verbal Response: jh oriented(5). Total: 15. MDM: 10:05 [facility]. [facility] 16:00 Differential diagnosis: migraine, Iron deficiency anemia. Data reviewed: vital signs, [facility] nurses notes, lab test result(s). I considered the following discharge prescriptions or medication management in the emergency department Medications were administered in the Emergency Department. See MAR. Care significantly affected by the following chronic conditions: Anemia. Counseling: I had a detailed discussion with the patient and/or guardian regarding: the historical points, exam findings, and any diagnostic results supporting the discharge/admit diagnosis, to return to the emergency department if symptoms worsen or persist or if there are any questions or concerns that arise at home. Response to treatment: the patient's symptoms have markedly improved after treatment. ED course: The patient significantly improved after medication therapy and blood transfusion. Agreed to refill her iron tablets and have her follow-up with her PCP. If she develops any new concerning symptoms, she may return to the ER for further eval.. 06/29 10:17 Order name: CBC with Diff; Complete Time: 15:10 [facility] 06/29 10:17 Order name: CMP; Complete Time: 13:25 [facility] 06/29 10:17 Order name: Test, Urine; Complete Time: 13:25 [facility] 06/29 10:17 Order name: Urinalysis w/ reflexes [facility] 06/29 10:17 Order name: Type And Screen [facility] 06/29 10:17 Order name: SARS RAPID; Complete Time: 13:25 [facility] 06/29 10:17 Order name: Flu; Complete Time: 13:25 [facility] 06/29 12:51 Order name: Test, Serum; Complete Time: 14:35 [facility] 06/29 13:56 Order name: Packed RBC Leukored [facility] 06/29 15:10 Order name: CBC Smear Scan; Complete Time: 15:10 [facility] 06/29 10:17 Order name: IV Saline Lock; Complete Time: 12:27 [facility] 06/29 10:17 Order name: Labs collected and sent; Complete Time: 12:27 [facility] 06/29 13:29 Order name: Transfuse; Complete Time: 14:56 [facility] Administered Medications: 12:29 Drug: NS 0.9% IV 1000 ml Route: IV; Rate: 1 bolus; Site: right antecubital; nj1 13:24 Follow up: Response: No adverse reaction nj1 13:24 Follow up: Response: No adverse reaction; IV Status: Completed infusion; IV Intake: nj1 1000ml 12:29 Drug: Ondansetron IVP 4 mg Route: IVP; Site: right antecubital; nj1 13:24 Follow up: Response: No adverse reaction; Nausea is decreased nj1 13:00 Drug: metoCLOPramide IVP 10 mg Route: IVP; Site: right antecubital; nj1 13:24 Follow up: Response: No adverse reaction nj1 13:24 Drug: MethylPrednisoLONE IVP 125 mg Route: IVP; Site: right antecubital; nj1 14:00 Follow up: Response: No adverse reaction nj1 Disposition: 14:58 Co-signature as Attending Physician, Dipesh RAGLAND was immediately available on-site ms3 in the Emergency Department for consultation in the care of the patient. Disposition Summary: 06/29/22 15:58 Discharge Ordered Location: Home [facility] Problem: new [facility] Symptoms: have improved [facility] Condition: Stable [facility] Diagnosis - Iron deficiency anemia, unspecified 7 - Nausea 7 - Headache [facility]up: [facility] - With: Aric Almanzar MD - When: 2 - 3 days - Reason: Recheck today's complaints Discharge Instructions: - Discharge Summary Sheet 7 - Iron Deficiency Anemia, Adult 7 - Anemia jh7 - Iron-Rich Diet 7 - General Headache Without Cause [facility] Forms: - Medication Reconciliation Form [facility] - Thank You Letter [facility] Prescriptions: - ondansetron 4 mg Oral Tablet,disintegrating - take 1 tablet by ORAL route every 4-6 hours As needed; 20 tablet; Refills: 0, j[facility] Product Selection Permitted - Ferrous Sulfate 325 mg (65 mg Iron) Oral Tablet - take 1 tablet by ORAL route every 8 hours; 90 tablet; Refills: 0, Product [facility] Selection Permitted Signatures: Dispatcher [employer] Maria Dolores Abebe RN RN ap3 Dipesh Claudio DO DO ms3 Leah Og, COMPANY TRUCK DRIVER COMPANY TRUCK DRIVER 7 Meghna Reyes RN RN nj1
--- NOTE | 2022-06-29 15:59 | ER ---
Nurse's Notes [facility] Name: Augusta Rider Age: 41 yrs Sex: Female : 1980 Arrival Date: 06/29/2022 Time: 10:00 Bed 26 Private MD: Aric Almanzar Diagnosis: Iron deficiency anemia, unspecified;Nausea;Headache Presentation: 06/29 10:35 Chief complaint: Patient states: she feels like she has a headache so bad, and when her ap3 head hurts like this it is typically when she needs a blood transfusion. patient reports she has required three transfusions in the past. Patient states her symptoms have started approx one weeks ago. Coronavirus screen: At this time, the client does not indicate any symptoms associated with coronavirus-19. Ebola Screen: No symptoms or risks identified at this time. Initial Sepsis Screen: Does the patient meet any 2 criteria? No. Patient's initial sepsis screen is negative. Does the patient have a suspected source of infection? No. Patient's initial sepsis screen is negative. Risk Assessment: Do you want to hurt yourself or someone else? Patient reports no desire to harm self or others. Onset of symptoms was June 22, 2022. 10:35 Method Of Arrival: Ambulatory ap3 10:35 Acuity: POOJA 3 ap3 Triage Assessment: 10:37 Headache History: The patient has had previous headaches and this one is similar to ap3 previous episodes. General: Appears in no apparent distress. Behavior is calm, cooperative, appropriate for age. Pain: Complains of pain in head Pain currently is 5 out of 10 on a pain scale. at worst was 8 out of 10 on a pain scale. Pain began gradually, Also complains of nausea. Neuro: Level of Consciousness is awake, alert, obeys commands, Oriented to person, place, time, situation, Gait is steady, Speech is normal. Cardiovascular: Patient's skin is warm and dry. Respiratory: Airway is patent Respiratory effort is even, unlabored, Respiratory pattern is regular, symmetrical. GI: Reports nausea. PROBATE PARALEGAL: 10:38 LMP 06/19/2022 ap3 Historical: - Allergies: 10:37 Sulfa (Sulfonamide Antibiotics); ap3 10:37 Aspirin; ap3 - PMHx: 10:37 Anemia; GERD; Migraine; ap3 - PSHx: 10:37 section; ap3 - Immunization history:: Client reports receiving the 2nd dose of the Covid vaccine. - Social history:: Smoking status: Patient denies any tobacco usage or history of. Screenin:38 [facility] ED Fall Risk Assessment (Adult) History of falling in the last 3 months, ap3 including since admission No falls in past 3 months (0 pts). Abuse screen: Denies threats or abuse. Nutritional screening: No deficits noted. Tuberculosis screening: No symptoms or risk factors identified. Assessment: 11:45 Reassessment: Patient appears in no apparent distress at this time. Patient and/or nj1 family updated on plan of care and expected duration. Pain level reassessed. Patient is alert, oriented x 3, equal unlabored respirations, skin warm/dry/pink. Pain: Complains of pain in head Pain currently is 5 out of 10 on a pain scale. 11:45 Reassessment: See triage assessment. nj1 13:00 Reassessment: Patient appears in no apparent distress at this time. Patient and/or nj1 family updated on plan of care and expected duration. Pain level reassessed. Patient is alert, oriented x 3, equal unlabored respirations, skin warm/dry/pink. Patient states feeling better. Patient states symptoms have improved. 13:00 Pain: Complains of pain in Head Pain currently is 3 out of 10 on a pain scale. GI: nj1 Patient currently denies nausea. 14:15 Reassessment: Patient appears in no apparent distress at this time. No changes from [facility] previously documented assessment. Patient and/or family updated on plan of care and expected duration. Pain level reassessed. Patient is alert, oriented x 3, equal unlabored respirations, skin warm/dry/pink. 14:25 Reassessment: Unit of PRBC's started, see Transfusion Record for details. Checked by nj1 Erica Arreguin RN. 15:25 Reassessment: Patient appears in no apparent distress at this time. Patient and/or nj1 family updated on plan of care and expected duration. Pain level reassessed. Patient is alert, oriented x 3, equal unlabored respirations, skin warm/dry/pink. Patient states feeling better. Patient states symptoms have improved. 15:25 Pain: Denies pain. nj 16:25 Reassessment: Patient appears in no apparent distress at this time. No changes from nj1 previously documented assessment. Patient and/or family updated on plan of care and expected duration. Pain level reassessed. Patient is alert, oriented x 3, equal unlabored respirations, skin warm/dry/pink. Patient denies pain at this time. Patient states feeling better. Patient states symptoms have improved. 17:15 Neuro: Level of Consciousness is awake, alert, obeys commands, Oriented to person, aa5 place, time, situation. Respiratory: Airway is patent Respiratory effort is even, unlabored, Respiratory pattern is regular, symmetrical. Derm: Skin is dry, Skin is normal, Skin temperature is warm. 17:15 Reassessment: Patient states feeling better. Patient states symptoms have improved. aa5 Vital Signs: 10:35 BP 166 / 96; Pulse 89; Resp 17; Pulse Ox 98% ; Weight 77.11 kg; Height 5 ft. 3 in. ; ap3 Pain 5/10; 12:10 BP 129 / 74; Pulse 74; Resp 18; Pulse Ox 98% on R/A; Pain 5/10; nj1 14:17 BP 126 / 52; Pulse 75; Resp 16; Temp 98; Pulse Ox 100% ; nj1 15:25 BP 112 / 71; Pulse 77; Resp 16; Temp 98.1; Pulse Ox 100% ; nj1 16:25 BP 126 / 76; Pulse 78; Resp 17; Temp 98.1; Pulse Ox 100% ; nj1 16:41 BP 124 / 73; Pulse 83; Resp 18; Temp 98.4; Pulse Ox 100% ; nj1 10:35 Body Mass Index 30.11 (77.11 kg, 160.02 cm) ap3 10:35 Pain Scale: Adult ap3 12:10 Pain Scale: Adult nj1 Sherry Coma Score: 16:00 Eye Response: spontaneous(4). Motor Response: obeys commands(6). Verbal Response: jh7 oriented(5). Total: 15. ED Course: 10:03 Patient arrived in ED. mr 10:03 Aric Almanzar MD is Private Physician. mr 10:05 [facility] jh7 10:05 Dipesh Claudio DO is Attending Physician. jh7 10:37 Triage completed. ap3 10:38 Arm band placed on right wrist. ap3 11:16 Eric, Meghna, RN is Primary Nurse. nj1 11:45 Patient has correct armband on for positive identification. Bed in low position. Call nj1 light in reach. 12:10 Inserted saline lock: 20 gauge in right antecubital area, using aseptic technique. nj1 Blood collected. 15:57 Aric Almanzar MD is Referral Physician. [facility] 17:15 No provider procedures requiring assistance completed. IV discontinued, intact, aa5 bleeding controlled, No redness/swelling at site. Pressure dressing applied. Administered Medications: 12:29 Drug: NS 0.9% IV 1000 ml Route: IV; Rate: 1 bolus; Site: right antecubital; nj1 13:24 Follow up: Response: No adverse reaction nj1 13:24 Follow up: Response: No adverse reaction; IV Status: Completed infusion; IV Intake: nj1 1000ml 12:29 Drug: Ondansetron IVP 4 mg Route: IVP; Site: right antecubital; nj1 13:24 Follow up: Response: No adverse reaction; Nausea is decreased nj1 13:00 Drug: metoCLOPramide IVP 10 mg Route: IVP; Site: right antecubital; nj1 13:24 Follow up: Response: No adverse reaction nj1 13:24 Drug: MethylPrednisoLONE IVP 125 mg Route: IVP; Site: right antecubital; nj1 14:00 Follow up: Response: No adverse reaction nj1 Medication: 17:15 VIS not applicable for this client. aa5 Intake: 13:24 IV: 1000ml; Total: 1000ml. nj1 Outcome: 15:58 Discharge ordered by . [facility] 17:15 Discharged to home ambulatory. aa5 17:15 Condition: improved 17:15 Discharge instructions given to patient, Instructed on discharge instructions, follow up and referral plans. medication usage, Demonstrated understanding of instructions, follow-up care, medications, Prescriptions given X 2. 17:18 Patient left the ED. aa5 Signatures: Katelynn Parks ArreguinErica pinto, RN RN aa5 Maria Dolores Noguera RN RN ap3 Leah Og, PAID SEARCH SPECIALIST PAID SEARCH SPECIALIST [facility] Meghna Reyes, RN RN nj1 Corrections: (The following items were deleted from the chart) 17:06 17:05 Response: No adverse reaction; IV Status: Completed infusion; IV Intake: 1000ml nj1 nj1
[2022-06-29 17:45] VITALS: O2SAT 100
[2022-06-29 17:49] VITALS: BP 124/73; TEMP 98.4
== END 2022-06-29 17:18 | disposition home or self-care (01) ==
LOC: ER 10:00
DX: D50.9 Iron deficiency anemia, unspecified (principal); R11.0 Nausea
CPT/HCPCS: 36415; 80053; 81003; 81025; 84703; 85025; 86850; 86900; 86901; 86920; 87804; 87811; 96361; 96374; 96375; 99284; J2405; J2765; J2930; J7030; J7040; P9016

== ENCOUNTER 2022-12-10 09:01 | Emergency (ER) | payer SELFPAY ==
--- OUTSIDE RECORDS SUMMARY | 2022-12-10 09:21 | XMS REPORT | Continuity of Care Document ---
:1980 Author Organization [facility] t Address [address] [place] [address] [place] [id number] Care Team Providers Name Role Phone Pcp, Patient Does Not Have A Primary Care Physician +[id number] Doctor Unassigned, [employer] Attending Clinician Unavailable Coco Allen DO Attending Clinician COCO ALLEN Attending Clinician Unavailable Abad Candelaria NP Attending Clinician ABAD CANDELARIA Attending Clinician Unavailable TRAVIS Attending Clinician Unavailable CHRISTIE BRISENO Attending Clinician Unavailable MCKAYLA EDWARDS Attending Clinician Unavailable COCO ALLEN Admitting Clinician Unavailable ABAD CANDELARIA Admitting Clinician Unavailable [...] rs active active ity of problems problems [facility] Allergies, Adverse Reactions, Alerts Allergy Allergy Status Severity Reaction(s) Onset Inactive Treating Comm ents Source Name Type Date Date Clinician ASPIRIN DRUG Active N/V Univers INGREDI 04-03 ity of 00:00: 00 Medical Branch Aspirin Propensi Active Nausea Univers ty to and/or 04-03 ity of adverse Vomiting 00:00: [place] reaction 00 Medical s Branch Sulfa Propensi Active Hives Univers (Sulfona ty to 1-28 ity of mide adverse 00:00: [place] Antibiot reaction 00 Medica l ics) s Branch SULFA Drug Active Hives Univers (SULFONA Class 1-28 ity of MIDE 00:00: [place] ANTIBIOT 00 Medical ICS) Branch Aspirin Propensi Active Nausea [facility] adverse 00:00: Medical reaction 00 Center s Sulfa Propensi Active Rash [facility] (Sulfona ty to 6-05 [facility] mide adverse 00:00: Medical Antibiot reaction 00 Center ics) s Aspirin Adverse Active Info Not Common Reaction [facility] Active Univers ALLERGIE Class ity of S [facility] Family History Family Member Diagnosis Comments Start Date Stop Date Source Maternal aunt Cancer [facility] Maternal aunt Hypertension [facility] Maternal aunt Stroke [facility] Maternal grandfather Diabetes [facility] Maternal grandmother Heart attack CH [facility] Maternal grandmother Hypertension [facility] Natural mother Hypertension [facility] Paternal aunt Diabetes [facility] Paternal aunt Hypertension [facility] Paternal aunt Kidney failure [facility] Paternal grandmother Alzheimer's disease [facility] Paternal uncle Stroke [facility] Social History Social Habit Start Date Stop Date Quantity Comments Source History of tobacco Snuff User [facility] Sexual orientation Univer [facility] Exposure to 2022-03-24 2022-04-03 Not sure University of SARS-CoV-2 (event) 00:00:00 20:26:00 [facility] Tobacco use and 2017-05-10 2017-05-[address] [facility] exposure 00:00:00 00:00:00 tobacco user Medical [facility] er Tobacco Comment 2017-05-10 2017-05-10 one pack/month [facility] Center Alcohol Comment 2017-05-10 2017-05-[address] [facility] 00:00:00 00:00:[address] Alcohol intake 2017-05-10 2017-05-10 Current drinker of [facility] 00:00:00 00:00:00 alcohol (finding) [facility] Center Sex Ass[birth year] At [birth year] ALMAZ Mata 00:00:00 00:00:00 Medical Center Smoking Status Start Date Stop Date Source Tobacco smoking [facility] consumption unknown Medical Bran ch Ex-smoker 2017-05-10 00:00:00 2017-05-10 ALMAZ [facility] 00:00:00 Center Medications Ordered Filled Start Stop Current Ordering Indication Dosage Frequency Signature Comments Components Source Medication Medication Date Date Medication? Clinician (SIG) Name Name dexamethaso 202- No 10mg 10 mg, Uni vers ne 04-04 Intramuscu ity of (DECADRON 05:15: 04:14 lar, ONCE, [place] PHOSPHATE) 00 :00 1 dose, On Med ical injection Sat Branch 10 mg 04/03/22 at 2315, Routine methylPREDN 2022-0 Yes [id number] Take by Univers ISolone 4 04-04 mouth ity of mg tablets 00:00: SEE-INSTRU [place] 00 CTIONS. Medical follow Branch package directions methylPREDN 2022-0 Yes [id number] Take by Univers ISolone 4 -29 mouth ity of mg tablets 00:00: SEE-INSTRU [place] 00 CTIONS. Medical follow Branch package directions methylPREDN 2022-0 Yes [id number] Take by Univers ISolone 4 04-04 mouth ity of mg tablets 00:00: SEE-INSTRU [place] 00 CTIONS. Medical follow Branch package directions albuterol 2022-0 Yes [id number] 2{puff} Inhale 2 Univers 90 1-28 Puffs ity of mcg/actuati 00:00: every 4 Nadeem as on inhaler 00 (four) Medical hours as Branch needed for Wheezing or Shortness of Breath. benzonatate 2022-0 Yes [id number] 200mg Take 2 Univers 100 mg 1-28 capsules ity of capsule 00:00: by mouth [place] 00 every 8 Medical (eight) Branch hours as needed for Cough. albuterol 2022-0 Yes [id number] 2{puff} Inhale 2 Univers 90 1-28 Puffs ity of mcg/actuati 00:00: every 4 Nadeem as on inhaler 00 (four) Medical hours as Branch needed for Wheezing or Shortness of Breath. benzonatate Yes [id number] 200mg Take 2 Univers 100 mg 1-28 capsules ity of capsule 00:00: by mouth [place] 00 every 8 Medical (eight) Branch hours as needed for Cough. albuterol Yes [id number] 2{puff} Inhale 2 Univers 90 1-28 Puffs ity of mcg/actuati 00:00: every 4 Nadeem as on inhaler 00 (four) Medical hours as Branch needed for Wheezing or Shortness of Breath. benzonatate Yes [id number] 200mg Take 2 Univers 100 mg 1-28 capsules ity of capsule 00:00: by mouth [place] 00 every 8 Medical (eight) Branch hours as needed for Cough. clindamycin [address] [facility] (CLEOCIN) 3-02 [facility] 150 MG 00:00: Medical capsule [place] clindamycin [address] [facility] (CLEOCIN) 3-02 [facility] 150 MG 00:00: Medical capsule 00 [place] clindamycin [address] [facility] (CLEOCIN) 3-02 [facility] 150 MG 00:00: Medical capsule 00 [place] clindamycin 2018-[address] [facility] (CLEOCIN) 3-02 [facility] 150 MG 00:00: Medical capsule 00 [place] clindamycin [address] [facility] (CLEOCIN) 3-02 [facility]. [facility] 150 MG 00:00: Medical capsule 00 [place] FERRETTS 2018-[address] [facility] [address] 325 mg (106 2-08 [facility] mg iron) 00:00: Medical Tab [place] FERRETTS 2018-[address] [facility] [address] [facility] mg (106 2-08 [facility] mg iron) 00:00: Medical Tab 00 [place] FERRETTS 2018-[address] [facility] [address] [facility] mg (106 2-08 [facility] mg iron) 00:00: Medical Tab [place] FERRETTS 2018-[address] [address] [facility] mg (106 2-08 [facility] mg iron) 00:00: Medical Tab 00 [place] FERRETTS 2018-[address] [address] [facility] mg (106 2-08 [facility] mg iron) 00:00: Medical Tab 00 [place] VITAMIN D2 2018-[address] [facility],000 unit 2-07 [facility] capsule 00:00: Medical 00 [place] VITAMIN D2 2018-[address] [address] [facility],000 unit 2-07 [facility] capsule 00:00: Medical 00 [place] VITAMIN D2 2018-[address] [address] [facility]000 unit 2-07 [facility] capsule 00:00: Medical 00 [place] VITAMIN D2 2018-[address] [address] [facility],000 unit 2-07 [facility] capsule 00:00: Medical 00 [place] VITAMIN D2 2018-[address] [address] [facility]000 unit 2-07 [facility] capsule 00:00: Medical 00 [place] meloxicam [id number] Yes As needed [facility] (MOBIC) 7.5 1-30 for pain. Julianna es MG tablet 00:00: Medical 00 [place] meloxicam Yes As needed [facility] (MOBIC) 7.5 1-30 for pain. Julianna es MG tablet 00:00: Medical 00 [place] meloxicam 0 Yes As needed [facility] (MOBIC) 7.5 1-30 for pain. Julianna es MG tablet 00:00: Medical 00 [place] meloxicam 0 Yes As needed [facility] (MOBIC) 7.5 1-30 for pain. Julianna es MG tablet 00:00: Medical 00 [place] meloxicam [id number] Yes As needed [facility] (MOBIC) 7.5 1-30 for pain. Julianna es MG tablet 00:00: Medical 00 [place] tylenol tylenol Yes Jay 1 tab Commo n [place] [facility] ibuprofen ibuprofen Yes Jay 1 tab C ommon [place] [facility] Aleve Aleve Yes Jay 1 tablet Common [place] with food Spirit or milk as - [facility] needed [facility] Immunizations Ordered Immunization Filled Immunization Date Status Commen ts Source Name Name SARS-COV-2 COVID-19 Unknown Completed Unive rsity of JOE/J&J VACCINE [facility] Vital Signs Vital Name Observation Time Observation Value Comments Source Systolic blood 2022-09-30 21:00:00 121 mm[Hg] Univer sity of pressure [facility] Diastolic blood 2022-09-30 21:00:00 77 mm[Hg] Unive rsity of pressure [facility] Heart rate 2022-09-30 21:00:00 73 /min [facility] Oxygen saturation in 2022-09-30 21:00:00 100 /min University of Arterial blood by [facility] Pulse oximetry Branch Body temperature 2022-09-30 19:18:00 37.78 Yany [facility] ersity of [facility] Respiratory rate 2022-09-30 19:18:00 18 /min [facility] ersity of [facility] Body height 2022-09-30 19:18:00 160 cm Universi ty of [place] [facility] [place] Body weight 2022-09-30 19:18:00 81.647 kg Universi ty of [facility] BMI 2022-09-30 19:18:00 31.89 kg/m2 Universi ty of [facility] Systolic blood 2022-04-04 04:13:00 138 mm[Hg] Univer sity of pressure [facility] Diastolic blood 2022-04-04 04:13:00 81 mm[Hg] [facility] Heart rate 2022-04-04 02:29:00 88 /min Universi ty of [facility] Body temperature 2022-04-04 02:29:00 37.89 Yany [facility] Respiratory rate 2022-04-04 02:29:00 18 /min [facility] Body height 2022-04-04 02:29:00 160 cm Universi ty [facility] [place] [facility] [place] Body weight 2022-04-04 02:29:00 81.647 kg Universi ty of [place] [facility] BMI 2022-04-04 02:29:00 31.89 kg/m2 Universi ty of [facility] Oxygen saturation in 2022-04-04 02:29:00 99 /min University of Arterial blood by [facility] Pulse oximetry Branch Procedures Procedure Date / Time Performing Clinician Source Performed AUTHORIZATION FOR 2022-11-24 05:01:00 Doctor Unassigned, No [facility] RE[facility] OF PHI Name Medical Branch XR SHOULDER 2+ VW LEFT 2022-09-30 19:43:35 [facility] VW 2022-04-04 03:38:16 Abad Candelaria [facility] RAPID STREP SCREEN FOR 2022-04-04 02:35:00 Martine Cagel [facility] RAPID INFLUENZA A/B 2022-04-04 02:35:00 Martine Cagle [facility] ity of [facility] COVID-19 (ID NOW RAPID 2022-04-04 02:35:00 Martine Cagle [facility] TESTING) Medical Branch NOTICE OF PRIVACY 2022-04-04 02:10:59 Doctor Unassigned, No [facility] PRACTICES Name Medical Branch CONSENT/REFUSAL FOR 2022-04-04 02:10:12 Doctor Unassigned, No [facility] DI[facility] AND TREATMENT Name Medical Branch Encounters Start End Encounter Admission Attending Care Care Encounter Source Date/Time Date/Time Type Type Clinicians Facility Department ID 2022-12-08 2022-12-08 Outpatient [facility] JOSE [id number] Ted 08:48:45 08:48:45 1004 F Romero 2022-11-24 2022-11-24 Orders Doctor GELLER [id number] Univers 00:00:00 00:00:00 Only Unassigned, CHAUNCEY [id number] ity of [employer] [facility] [id number] Nadeem [id number] [facility] 009 Branch 2022-09-30 2022-09-30 Emergency Tiffany [facility] [id number] Univers 14:15:00 16:53:00 Coco LOWRY [id number] ity [facility] [id number] [facility] [id number] [facility] 084 Branch 2022-09-30 2022-09-30 Emergency X TIFFANY [facility] ERT [id number] Univers 14:15:00 16:53:00 COCO ity of [facility] 2022-09-16 2022-09-16 Outpatient [facility] JOSE [id number] Ted 11:25:06 11:25:06 0713 F [place] 2022-09-06 2022-09-06 Outpatient [facility] JOSE [id number] Ted 10:01:48 10:01:48 0703 F [place] 2022-04-03 2022-04-03 Emergency Jacques [facility] [id number] Univers 20:36:00 22:29:00 Abad LOWRY [id number] itrome gandhi [facility]CHOR [id number] [facility] [id number] [place] [address] Branch 2022-04-03 2022-04-03 Emergency X JACQUES [facility] ERT [id number] Univers 20:36:00 22:29:00 ABAD rosenthal [facility] 2021-09-19 2021-09-19 Outpatient VINNY BOO [facility] [id number] [place] 09:44:00 09:44:00 _ANN 0716 da [facility] Outre h Program 2017-12-12 2017-12-12 [facility] 22 [id number] Common 11:57:00 11:57:00 [facility] 2017-12-07 2017-12-07 [facility] 22 [id number] Common 09:34:00 09:34:00 t [facility] 2017-12-05 2017-12-05 [facility] 21 [id number] Common 08:30:00 08:30:00 t [facility] Results Test Description Test Time Test Comments Results Result Comments Source URINE CULTURE 2017-05-11 13:30:00 Test Item Value Reference Range Interpretation Comme nts CULTURE (BEAKER) (test code = 1095) 40-49,000 col/mL skin ramon HEMOGLOBIN [id number] 16:13:00 Test Item Value Reference Range Interpretation Comments HEMOGLOBIN A1C (BEAKER) (test code = 4.4 % 4.3-6.1 368) URINALYSIS W/ [id number] 12:14:00 Test Item Value Reference Range Interpretation [...] SOURCE(BEAKER) (test code = 2795) PROTEIN, RANDOM [id number] 12:10:00 Test Item Value Reference Range Interpretation Comments PROTEIN, URINE (BEAKER) (test code = < mg/dL 0-14 1569) MICROALBUMIN, RANDOM [id number] 12:04:00 Test Item Value Reference Range Interpretation Comments MICROALBUMIN URINE (BEAKER) (test < mg/dL code = 1794) Reference Range: No NormalsHCG, QUANTITATIVE, [id number] 12:03:00 Test Item Value Reference Range Interpretation Comments GONADOTROPIN, CHORIONIC (HCG) QUANT < mIU/mL 0-10 (BEAKER) (test code = 649) Non- Females: <10 mIU/mL Females: Gestation Age Reference Range(mIU/mL) 0.2-1 Week 5-50 1-2 Weeks 50-500 2-3 Weeks 100-5,000 3-4 Weeks 500-10,000 4-5 Weeks 1,000-50,000 5-6 Weeks 10,000-100,000 6-8 Weeks 15,000- 200,000 2-3 Months 10,000-100,000CREATININE, RANDOM [id number] 11:38:00 Test Item Value Reference Range Interpretation Comments CREATININE URINE (BEAKER) (test 70.1 mg/dL code = 375) Reference Range: No NormalsHEPATIC FUNCTION [id number] 11:37:00 Test Item Value Reference Range Interpretation [...] = 14 U/L 6-55 347) BASIC METABOLIC [id number] 11:37:00 Test Item Value Reference Range Interpretation [...] PATIEN TS. CBC W/PLT COUNT & AUTO [id number] 10:43:00 Test Item Value Reference Range Interpretation [...] (test code = 2801) RAPID STREP A [id number] 23:12:00 Test Item Value Reference Range Interpretation Comments STREP A ANTIGEN (BEAKER) (test code Negative Negative = 556)
[2022-12-10 09:59] LABS: Protime INR 1.05
[2022-12-10 10:04] LABS: Hematocrit 18.4 % (36.0-45.0); Lymphocytes % 29.2 % (15.3-44.8); MCV 58.7 fL (80-100); Platelets 654 thou/uL (152-406); RBC Red Blood Cell Count 3.13 M/uL (3.86-4.86)
[2022-12-10 10:15] LABS: Albumin 3.3 g/dL (3.4-5.0); Bilirubin Total 0.2 mg/dL (0.2-1.0); Potassium 3.9 mEq/L (3.5-5.1); Protein, Total 7.7 g/dL (6.4-8.2)
[2022-12-10 10:16] LABS: Ferritin 1.4 ng/mL (8-388)
[2022-12-10 11:02] LABS: Anisocytosis 2+; Blood Morphology Comment NOTED (NOT SEEN); Hypochromasia 2+; Platelet Estimate INCR; White Blood Cell Scan OK (OK)
[2022-12-10] MEDS ORDERED: NA CHLORIDE 0.9% 250 ML ONE ×3 (11:39→16:09)
--- NOTE | 2022-12-10 15:39 | ER ---
Nurse's Notes [facility] Name: Augusta Rider Age: 42 yrs Sex: Female : 1980 Arrival Date: 12/10/2022 Time: 09:01 Bed 8 Private MD: Diagnosis: Iron deficiency anemia secondary to blood loss (chronic) Presentation: 12/10 09:15 Chief complaint: Patient states: "I have very heavy menstrual bleeding that is being hb treated by my OBGYN, I have anemia because of it, my blood work yesterday said my hemoglobin was 5." Pt also c/o headache. Coronavirus screen: At this time, the client does not indicate any symptoms associated with coronavirus-19. Ebola Screen: No symptoms or risks identified at this time. Initial Sepsis Screen: Does the patient meet any 2 criteria? No. Patient's initial sepsis screen is negative. Does the patient have a suspected source of infection? No. Patient's initial sepsis screen is negative. Risk Assessment: Do you want to hurt yourself or someone else? Patient reports no desire to harm self or others. Onset of symptoms was December 10, 2022. 09:15 Method Of Arrival: Ambulatory hb 09:15 Acuity: POOJA 3 hb Historical: - Allergies: 09:17 Aspirin; hb 09:17 Sulfa (Sulfonamide Antibiotics); hb - Home Meds: 09:17 Imitrex Oral as needed [Active]; topiramate oral [Active]; hb - PMHx: 09:17 Anemia; GERD; Migraine; hb - PSHx: 09:17 section; hb - Immunization history:: Adult Immunizations up to date. - Social history:: Smoking status: Patient denies any tobacco usage or history of. Screenin:23 [facility] ED Fall Risk Assessment (Adult) History of falling in the last 3 months, ph including since admission No falls in past 3 months (0 pts) Altered Elimination No (0 pt). Abuse screen: Denies threats or abuse. Denies injuries from another. Nutritional screening: No deficits noted. Tuberculosis screening: No symptoms or risk factors identified. Assessment: 10:00 General: Appears in no apparent distress. Behavior is calm, cooperative, appropriate ph for age. General: Reports fatigue for >3 days. Pain: Denies pain. Neuro: Level of Consciousness is awake, alert, obeys commands, Oriented to person, place, time, situation. Cardiovascular: Capillary refill < 3 seconds in bilateral fingers Thorax. Respiratory: Airway is patent Respiratory effort is even, unlabored, Respiratory pattern is regular, symmetrical. GI: No signs and/or symptoms were reported involving the gastrointestinal system. Derm: Skin is pink, warm \\T\\ dry. 16:05 Reassessment: Patient appears in no apparent distress at this time. Patient and/or ph family updated on plan of care and expected duration. Pain level reassessed. Patient is alert, oriented x 3, equal unlabored respirations, skin warm/dry/pink. Pt c/o headache, states," for some reason when I get blood transfusions I get a headache." Pt states that migraine cocktail is usually helpful, ERP notified, see MAY. D/C pending completion of IV medications. Vital Signs: 09:15 BP 126 / 80; Pulse 104; Resp 18; Temp 99(TE); Pulse Ox 100% on R/A; Weight 86.18 kg; hb Height 5 ft. 3 in. ; Pain 4/10; 11:00 BP 117 / 67; Pulse 83; Resp 18; Pulse Ox 98% on R/A; ph 12:00 BP 121 / 69; Pulse 84; Resp 16; Pulse Ox 99% on R/A; ph 13:00 BP 129 / 66; Pulse 92; Resp 18; Pulse Ox 99% on R/A; ph 14:00 BP 134 / 60; Pulse 99; Resp 18; Pulse Ox 100% on R/A; ph 15:23 BP 105 / 64; Pulse 79; Resp 18; Pulse Ox 100% on R/A; ph 09:15 Body Mass Index 33.66 (86.18 kg, 160.02 cm) hb 09:15 Pain Scale: Adult hb ED Course: 09:05 Patient arrived in ED. mr 09:06 Leah Og FNP [facility] jh7 09:06 Naveed Grider MD is Attending Physician. jh7 09:17 Triage completed. hb 09:18 Arm band placed on. hb 09:23 Michelle Vale, BEA is Primary Nurse. ph 09:50 Inserted saline lock: 20 gauge in right antecubital area, using aseptic technique. ph 09:51 TIBC Sent. ph 09:51 Ferritin Sent. ph 09:51 Type And Screen Sent. ph 09:51 PT-INR Sent. ph 09:51 CMP Sent. ph 09:51 CBC with Diff Sent. ph 15:23 Patient has correct armband on for positive identification. Bed in low position. Call ph light in reach. Side rails up X 1. Client placed on continuous cardiac and pulse oximetry monitoring. NIBP monitoring applied. Administered Medications: 16:04 Drug: metoCLOPramide IVP 10 mg IVP once; over 1 to 2 minutes Route: IVP; Site: right ph antecubital; 17:00 Follow up: Response: No adverse reaction; Pain is decreased ph 16:04 Drug: Ketorolac IVP 15 mg IVP once Route: IVP; Site: right antecubital; ph 17:00 Follow up: Response: No adverse reaction; Pain is decreased ph 16:04 Drug: diphenhydrAMINE IVP 12.5 mg IVP once Route: IVP; Site: right antecubital; ph 17:00 Follow up: Response: No adverse reaction ph Medication: 12:10 Blood products: PRBCs X 1 unit given. ph 14:15 Blood products: PRBCs X 1 unit given. ph 15:22 VIS not applicable for this client. ph Outcome: 15:39 Discharge ordered by [facility] 16:52 Patient left the ED. ph Signatures: Katelynn Parks, Heladio Leija mr Michelle Vale, BEA RN Soco aWng RN RN Leah Og, ALTERNATIVE DISPUTE RESOLUTION MEDIATOR ALTERNATIVE DISPUTE RESOLUTION MEDIATOR [facility]
--- NOTE | 2022-12-10 15:39 | EDPHYS ---
Physician Documentation [facility] Name: Augusta Rider Age: 42 yrs Sex: Female : 1980 Arrival Date: 12/10/2022 Time: 09: Bed 8 Private MD: ED Physician Naveed Grider HPI: 12/10 09:17 This 42 yrs old Black Female presents to ER via Ambulatory with complaints of Abnormal jh7 Lab Results. 09:17 Onset: The symptoms/episode began/occurred yesterday. Associated signs and symptoms: jh7 Pertinent positives: fatigue. 42-year-old female with a history of iron deficiency anemia presents to the ER due to low hemoglobin. Patient states that lab called her today and informed her that her hemoglobin was 5.1. The patient has a history of heavy menstrual cycles and is being managed by an [facility]SOLE BEVELER at [facility].. Historical: - Allergies: 09:17 Aspirin; hb 09:17 Sulfa (Sulfonamide Antibiotics); hb - Home Meds: :17 Imitrex Oral as needed [Active]; topiramate oral [Active]; hb - PMHx: :17 Anemia; GERD; Migraine; hb - PSHx: 09:17 section; hb - Immunization history:: Adult Immunizations up to date. - Social history:: Smoking status: Patient denies any tobacco usage or history of. ROS: 09:17 Constitutional: Negative for fever, chills, and weight loss, Neck: Negative for injury, jh7 pain, and swelling, Cardiovascular: Negative for chest pain, palpitations, and edema, Respiratory: Negative for shortness of breath, cough, wheezing, and pleuritic chest pain, Abdomen/GI: Negative for abdominal pain, nausea, vomiting, diarrhea, and constipation, Skin: Negative for injury, rash, and discoloration, Neuro: Negative for headache, weakness, numbness, tingling, and seizure, :17 Constitutional: Positive for fatigue, Negative for fever, :17 All other systems are negative, Exam: 09:17 Constitutional: This is a well developed, well nourished patient who is awake, alert, jh7 and in no acute distress. Head/Face: Normocephalic, atraumatic. Cardiovascular: Regular rate and rhythm with a normal S1 and S2. No gallops, murmurs, or rubs. Normal PMI, no JVD. No pulse deficits. Respiratory: Lungs have equal breath sounds bilaterally, clear to auscultation and percussion. No rales, rhonchi or wheezes noted. No increased work of breathing, no retractions or nasal flaring. Abdomen/GI: Soft, non-tender, with normal bowel sounds. No distension or tympany. No guarding or rebound. No evidence of tenderness throughout. Back: No spinal tenderness. No costovertebral tenderness. Full range of motion. Skin: Warm, dry with normal turgor. Normal color with no rashes, no lesions, and no evidence of cellulitis. MS/ Extremity: Pulses equal, no cyanosis. Neurovascular intact. Full, normal range of motion. Neuro: Awake and alert, GCS 15, oriented to person, place, time, and situation. Cranial nerves II-XII grossly intact. Motor strength 5/5 in all extremities. Sensory grossly intact. Cerebellar exam normal. Normal gait. Vital Signs: 09:15 BP 126 / 80; Pulse 104; Resp 18; Temp 99(TE); Pulse Ox 100% on R/A; Weight 86.18 kg; hb Height 5 ft. 3 in. ; Pain 4/10; 11:00 BP 117 / 67; Pulse 83; Resp 18; Pulse Ox 98% on R/A; ph 12:00 BP 121 / 69; Pulse 84; Resp 16; Pulse Ox 99% on R/A; ph 13:00 BP 129 / 66; Pulse 92; Resp 18; Pulse Ox 99% on R/A; ph 14:00 BP 134 / 60; Pulse 99; Resp 18; Pulse Ox 100% on R/A; ph 15:23 BP 105 / 64; Pulse 79; Resp 18; Pulse Ox 100% on R/A; ph 09:15 Body Mass Index 33.66 (86.18 kg, 160.02 cm) hb 09:15 Pain Scale: Adult hb MDM: 09:06 Patient medically screened. [facility] 16:15 Differential diagnosis: Iron deficiency anemia, chronic blood loss. Data reviewed: [facility] vital signs, nurses notes, lab test result(s). I considered the following discharge prescriptions or medication management in the emergency department Medications were administered in the Emergency Department. See MAR. Care significantly affected by the following chronic conditions: Iron deficiency anemia. Counseling: I had a detailed discussion with the patient and/or guardian regarding the historical points, exam findings, and any diagnostic results supporting the discharge/admit diagnosis, the need for outpatient follow up, an OB/Gyne specialist, to return to the emergency department if symptoms worsen or persist or if there are any questions or concerns that arise at home. Response to treatment: the patient's symptoms have markedly improved after treatment. ED course: The patient reported a headache after the blood transfusion, which she reports is normal for her. Requested medications for headache, but states that she felt overall much better after the transfusion. Strongly advised her to follow-up with her OUTSOLE BEVELER and to return if her symptoms return or any new concerning symptoms develop.. 12/10 09:23 Order name: Type And Screen [facility] 12/10 09:23 Order name: CBC with Diff; Complete Time: 11:40 [facility] 12/10 09:23 Order name: CMP; Complete Time: 10:25 [facility] 12/10 09:23 Order name: PT-INR; Complete Time: 10:06 [facility] 12/10 09:29 Order name: Ferritin; Complete Time: 10:25 [facility] 12/10 09:29 Order name: TIBC; Complete Time: 10:25 [facility] 12/10 10:30 Order name: Bb Add On eb 12/10 10:33 Order name: Packed RBC Leukored [facility] 12/10 11:03 Order name: CBC Smear Scan; Complete Time: 11:40 [facility] 12/10 09:23 Order name: IV Start; Complete Time: 09:51 [facility] 12/10 10:26 Order name: Transfuse: 2 PRBCs; Complete Time: 13:07 [facility] Administered Medications: 16:04 Drug: metoCLOPramide IVP 10 mg IVP once; over 1 to 2 minutes Route: IVP; Site: right ph antecubital; 17:00 Follow up: Response: No adverse reaction; Pain is decreased ph 16:04 Drug: Ketorolac IVP 15 mg IVP once Route: IVP; Site: right antecubital; ph 17:00 Follow up: Response: No adverse reaction; Pain is decreased ph 16:04 Drug: diphenhydrAMINE IVP 12.5 mg IVP once Route: IVP; Site: right antecubital; ph 17:00 Follow up: Response: No adverse reaction ph Disposition: 16:58 Co-signature as Attending Physician, Naveed Grider MD I reviewed the patient's care rt provided by the Advanced Practice Provider and agree with the diagnosis and treatment plan. Disposition Summary: 12/10/22 15:39 Discharge Ordered Notes: Location: Home [facility] Problem: chronic [facility] Symptoms: are unchanged [facility] Condition: Stable [facility] Diagnosis - Iron deficiency anemia secondary to blood loss (chronic) [facility] Followup: [facility] - With: Private Physician - When: 2 - 3 days - Reason: Recheck today's complaints Discharge Instructions: - Discharge Summary Sheet [facility] - Iron Deficiency Anemia, Adult [facility] - Blood Transfusion, Adult [facility] - Iron-Rich Diet [facility] Forms: - Medication Reconciliation Form [facility] - Thank You Letter [facility] - Patient Portal Instructions [facility] - Leadership Thank You Letter [facility] Signatures: Dispatcher [employer] Michelle Gonzalez, RN RN Soco Graf RN RN Leah Og, TALLOW PUMPER TALLOW PUMPER [facility] Naveed Grider MD MD rt
[2022-12-10] MEDS ORDERED: METOCLOPRAMIDE 10 MG/2mL INJ ONE ×2 (16:09→18:56)
[2022-12-10] MEDS ORDERED: KETOROLAC 30 MG/ML INJ ONE (16:09)
[2022-12-10] MEDS ORDERED: DIPHENHYDRAMINE 50 MG/ML VIAL ONE (16:09)
[2022-12-10 17:23] VITALS: TEMP 99
[2022-12-10 17:37] VITALS: O2SAT 100
[2022-12-10 17:38] VITALS: BP 105/64
== END 2022-12-10 16:52 | disposition home or self-care (01) ==
LOC: ER 09:01
PROC: 30233N1 Transfusion of Nonautologous Red Blood Cells into Peripheral Vein, Percutaneous Approach (ICD-10-PCS; principal; 2022-12-10)
DX: D50.0 Iron deficiency anemia secondary to blood loss (chronic) (principal); Z88.2 Allergy status to sulfonamides; Z88.6 Allergy status to analgesic agent
CPT/HCPCS: 36415; 36430; 80053; 82728; 83540; 84466; 85025; 85610; 86850; 86900; 86901; 86920; 96374; 96375; 99285; J1200; J2765; J7050; P9016

== ENCOUNTER → 2023-03-13 | Emergency (ER) | payer BC, SELFPAY ==
[~2023-03-13] MED LIST: ACETAMINOPHEN 500 MG TAB ONE; NA CHLORIDE 0.9% 250 ML ONE
[2023-03-13 16:23] LABS: Hematocrit 21.1 % (36.0-45.0); Lymphocytes % 19.1 % (15.3-44.8); MCV 59.1 fL (80-100); Platelets 279 thou/uL (152-406); RBC Red Blood Cell Count 3.57 M/uL (3.86-4.86)
[2023-03-13 16:30] LABS: Protime INR 1.03
[2023-03-13 16:50] LABS: Albumin 3.2 g/dL (3.4-5.0); Bilirubin Total 0.2 mg/dL (0.2-1.0); Potassium 3.3 mEq/L (3.5-5.1); Protein, Total 8.7 g/dL (6.4-8.2)
[2023-03-13 17:37] LABS: White Blood Cell Scan OK (OK)
[2023-03-13 17:38] LABS: Anisocytosis 2+; Blood Morphology Comment NOTED (NOT SEEN); Hypochromasia 1+; Ovalocytes 2+; Platelet Estimate ADEQ; Poikilocytosis 2+; Polychromasia 1+; Teardrop Cell 1+
--- NOTE | 2023-03-13 20:54 | ER ---
Nurse's Notes [facility] Name: Augusta Rider Age: 42 yrs Sex: Female : 1980 Arrival Date: 03/13/2023 Time: 15:28 Bed 17 Private MD: Diagnosis: Anemia, unspecified;Hypokalemia Presentation: 03/13 15:45 Chief complaint: Patient states: Sent to the ED for HGB of 6.4. Pt states that she has cm10 a history of anemia due to heavy periods. Pt has no complaints at this time. Coronavirus screen: Vaccine status: Patient reports being unvaccinated. Client denies travel out of the [place] in the last 14 days. Ebola Screen: Patient denies travel to an Ebola-affected area in the 21 days before illness onset. No symptoms or risks identified at this time. Initial Sepsis Screen: Does the patient meet any 2 criteria? No. Patient's initial sepsis screen is negative. Does the patient have a suspected source of infection? No. Patient's initial sepsis screen is negative. Risk Assessment: Do you want to hurt yourself or someone else? Patient reports no desire to harm self or others. Onset of symptoms was March 13, 2023. 15:45 Method Of Arrival: Ambulatory cm10 15:45 Acuity: POOJA 3 cm10 Triage Assessment: 21:03 General: Appears in no apparent distress. Behavior is calm, cooperative, appropriate cp4 for age. 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 - Social history:: Smoking status: Patient denies any tobacco usage or history of. Screenin:20 [facility] ED Fall Risk Assessment (Adult) History of falling in the last 3 months, cp4 including since admission No falls in past 3 months (0 pts) Confusion or Disorientation No (0 pts) Intoxicated or Sedated No (0 pts) Impaired Gait No (0 pts) Mobility Assist Device Used No (0 pt) Altered Elimination No (0 pt) Score/Fall Risk Level 0 - 2 = Low Risk Oriented to surroundings, Maintained a safe environment, Educated pt \T\ family on fall prevention, incl call for assistance when getting out of bed, Assessed \T\ reinforced patient's understanding of fall precautions, Provided non-skid footwear, Hourly rounding (assess needs \T\ fall precautionary measures) done. Abuse screen: Denies threats or abuse. Nutritional screening: No deficits noted. Tuberculosis screening: No symptoms or risk factors identified. Assessment: 17:20 Pain: Denies pain. cp4 20:52 Reassessment: See blood transfusion record. cp4 Vital Signs: 15:45 BP 133 / 89; Pulse 97; Resp 18; Temp 97.1; Pulse Ox 100% on R/A; Weight 94.35 kg; cm10 Height 5 ft. 3 in. ; Pain 0/10; 15:45 Body Mass Index 36.85 (94.35 kg, 160.02 cm) cm10 15:45 Pain Scale: Adult cm10 ED Course: 15:33 Patient arrived in ED. mg5 15:34 Cecil Mcconnell MD is Attending Physician. ec2 15:48 Triage completed. cm10 15:48 Arm band placed on Patient placed in an exam room, on a stretcher. cm10 15:53 Sandy Torres is Primary Nurse. cp4 16:06 Ptt, Activated Sent. cp4 16:06 PT-INR Sent. cp4 16:06 Type And Screen Sent. cp4 16:06 CMP Sent. cp4 16:06 CBC with Diff Sent. cp4 17:20 Bed in low position. Call light in reach. Side rails up X 1. cp4 19:01 Sarai Angulo [facility]NP-C [facility] ec2 21:03 Provided Education on: Blood Transfusion. cp4 21:03 No provider procedures requiring assistance completed. intact, bleeding controlled, No cp4 redness/swelling at site. Pressure dressing applied. Administered Medications: 16:10 Drug: Acetaminophen PO 1000 mg PO once Route: PO; cp4 21:04 Follow up: Response: No adverse reaction cp4 Medication: 17:20 VIS not applicable for this client. cp4 Outcome: 20:53 Discharge ordered by . kb 21:03 Discharged to home ambulatory, cp4 21:03 Condition: stable 21:03 Discharge instructions given to patient, Instructed on discharge instructions, follow up and referral plans. Demonstrated understanding of instructions, follow-up care, 21:05 Patient left the ED. cp4 Signatures: Sarai Angulo FNP-C FNP-Ckb Martinez, Clarissa, RN RN cm10 Roberta Ardon mg5 Cecil Mcconnell MD MD ec2 Sandy Torres cp4
--- NOTE | 2023-03-13 20:54 | EDPHYS ---
Physician Documentation [facility] Name: Augusta Rider Age: 42 yrs Sex: Female : 1980 Arrival Date: 03/13/2023 Time: 15:28 Bed 17 Private MD: ED Physician Cecil Mcconnell HPI: 03/13 15:48 This 42 yrs old Black Female presents to ER via Ambulatory with complaints of Abnormal ec2 Lab Results. 15:48 Patient arrives today due to concern for anemia. Patient with history of uterine ec2 fibroids, just finished her menses yesterday, states that she had outpatient screening labs with a hemoglobin noted to be at 6.4. Patient states that she has issues with chronic anemia secondary to her fibroids, states that she is hoping to get a hysterectomy at some point, no evident plans. Patient reports no lightheadedness or shortness of breath. States that she typically has lower blood counts in the fives.. 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 - Social history:: Smoking status: Patient denies any tobacco usage or history of. ROS: 15:48 Constitutional: as per hpi ec2 Exam: 15:48 Constitutional: GEN: NAD Head: atraumatic Eyes: EOMI Ears: External ears are ec2 normal. CV: regular rate LUNGS: no respiratory distress ABD: non-distended SKIN: no evidence of rashes MSK: no evidence of trauma NEURO: moves all extremities equally Vital Signs: 15:45 BP 133 / 89; Pulse 97; Resp 18; Temp 97.1; Pulse Ox 100% on R/A; Weight 94.35 kg; cm10 Height 5 ft. 3 in. ; Pain 0/10; 15:45 Body Mass Index 36.85 (94.35 kg, 160.02 cm) cm10 15:45 Pain Scale: Adult cm10 MDM: 15:48 Patient medically screened. ec2 15:48 Data reviewed: vital signs. ED course: Patient arrives today due to concern for anemia. ec2 Examination remarkable for well-appearing nontoxic individual is otherwise in no acute distress. Will obtain lab work, type and screen, anticipate possible transfusion given the reported anemia at 6.4. Suspect the uterine fibroids causing her anemia. Additionally patient with no rectal bleeding or melanic stools, so doubt GI bleeding. 03/13 15:43 Order name: CBC with Diff; Complete Time: 17:54 ec2 03/13 15:43 Order name: CMP; Complete Time: 17:01 ec2 03/13 15:43 Order name: Type And Screen ec2 03/13 15:43 Order name: PT-INR; Complete Time: 16:49 ec2 03/13 15:43 Order name: Ptt, Activated; Complete Time: 16:49 ec2 03/13 17:17 Order name: Packed RBC Leukored EDMS 03/13 17:38 Order name: CBC Smear Scan; Complete Time: 17:54 EDMS 03/13 16:50 Order name: Consent for Blood Transfusion; Complete Time: 16:59 ec2 03/13 16:50 Order name: IV Saline Lock; Complete Time: 16:59 ec2 Administered Medications: 16:10 Drug: Acetaminophen PO 1000 mg PO once Route: PO; cp4 21:04 Follow up: Response: No adverse reaction cp4 Disposition Summary: 03/13/23 20:53 Discharge Ordered Condition: Stable kb Diagnosis - Anemia, unspecified kb - Hypokalemia kb Followup: ec2 - With: Private Physician - When: - Reason: Re-evaluation by your physician Discharge Instructions: - Discharge Summary Sheet ec2 - Blood Transfusion, Adult ec2 Forms: - Medication Reconciliation Form kb - Thank You Letter kb - Antibiotic Education kb - Prescription Opioid Use kb - Patient Portal Instructions kb - Leadership Thank You Letter kb Critical care time excluding procedures: 16:50 Critical care time: Bedside Care: 30 minutes, Consultation: 5 minutes. Total time: 35 ec2 minutes Signatures: Dispatcher [employer] Sarai Chowdary FNP-C FNP-Ckb Martinez, Clarissa RN RN cm10 Cecil Mcconnell MD MD ec2 Sandy Torres cp4 Corrections: (The following items were deleted from the chart) 15:50 15:48 ED course: Patient arrives today due to concern for anemia. Examination ec2 remarkable for well-appearing nontoxic individual is otherwise in no acute distress. Will obtain lab work, type and screen, anticipate possible transfusion given the reported anemia at 6.4. Suspect the uterine fibroids causing her anemia. Additionally patient with no rectal bleeding or melanic stools . ec2 17:16 16:50 PACKED RBC LEUKORED+BB.LAB.BRZ ordered. EDMS EDMS 17:16 16:52 ABO/RH typing ordered. EDMS EDMS 17:16 16:52 Antibody Screen ordered. EDMS EDMS
[2023-03-13 21:35] VITALS: BP 133/89; TEMP 97.1; O2SAT 100
== END ==
LOC: ER 15:28
PROC: 30233N1 Transfusion of Nonautologous Red Blood Cells into Peripheral Vein, Percutaneous Approach (ICD-10-PCS; principal; 2023-03-13)
DX: D64.9 Anemia, unspecified (principal); E87.6 Hypokalemia; Z88.2 Allergy status to sulfonamides; Z88.6 Allergy status to analgesic agent
CPT/HCPCS: 85025; 36415; 86900; 86850; 85610; 86901; 85730; 86920; 80053; 99283; 36430; P9040; J7050